=== PATIENT | female | born 1950 | race Caucasian/White ===

== ENCOUNTER 2019-04-05 16:04 | Outpatient (CLI) | payer MEDICARE, OTHER, SELFPAY ==
--- NOTE | ~2019-04-05 | US_ITS ---
EXAMINATION: US venous doppler [facility] DATE: 04/05/2019 16:44 INDICATION: Bilateral lower limb swelling TECHNIQUE: Salazar scale images without and with compression and Doppler images of the bilateral lower e xtremity veins were obtained. COMPARISON: None. FINDINGS: The right common femoral vein, profunda femoral vein, femoral vein, popliteal vein, peroneal trunk, p osterior tibial veins, and greater saphenous vein are patent. The left common femoral vein, profunda femoral vein, femoral vein, popliteal vein, peroneal trunk, po sterior tibial veins, and greater saphenous vein are patent. IMPRESSION: 1. Patent bilateral lower extremity veins. No evidence of deep venous thrombosis. Reviewed, dictated and finalized at location A. L SORTER IMPRESSION: 1. Patent bilateral lower extremity veins. No evidence of deep venous thrombosi s.
== END 2019-04-05 16:05 | disposition home or self-care (01) ==
LOC: ANHIMG 16:13
PROVIDERS: PCP Family Medicine; Visit Provider Physician Assistant
DX: M79.89 Other specified soft tissue disorders (principal)
CPT/HCPCS: 93970

== ENCOUNTER → 2019-09-20 14:58 | Outpatient (CLI) | payer MEDICARE, OTHER, SELFPAY ==
--- NOTE | ~2019-09-20 | US_ITS ---
EXAMINATION: US abdomen limited DATE: 09/20/2019 15:14 INDICATION: Unspecified abdominal pain. TECHNIQUE: Multiple grayscale and Doppler ultrasound images of the abdomen were obtained. COMPARISON: CT abdomen 06/29/2008 FINDINGS: Abdominal aorta is normal in caliber. The visualized portions of the head and body of the p ancreas are normal. There are cysts in the liver measuring up to 1.9 cm. There is normal flow in main portal vein. The gallbladder is normal in size. No gallstones or gallbladder wall thickening. There was no sonographic Merino sign. The common duct is normal and measures 4 mm. IMPRESSION: 1. No etiology for the patient's symptoms. Reviewed, dictated and finalized at location B.
== END ==
PROVIDERS: PCP Physician Assistant; Visit Provider Physician Assistant
DX: R10.9 Unspecified abdominal pain (principal)
CPT/HCPCS: 76705

== ENCOUNTER 2019-09-20 16:21 | Outpatient (CLI) | payer MEDICARE, OTHER, SELFPAY ==
--- NOTE | ~2019-09-20 | CT_ITS ---
EXAMINATION: CT abdomen pelvis w con EXAM DATE: 09/20/2019 16:54 INDICATION: Abdominal pain. TECHNIQUE: Spiral CT of the abdomen and pelvis was performed following intravenous injection of 100 m L Omnipaque 350. Axial, coronal and sagittal images were reviewed. The dose-length product (DLP) fo r this examination was 280.35 mGy-cm. The exposure was tailored according to patient size (auto mA e xposure control), and iterative reconstruction (ASIR) was used as additional dose reduction technique . Comparison is made to prior examination from 06/29/2008. FINDINGS: Scattered subcentimeter liver cysts. There is hilar splenic artery aneurysm measuring 1.3 c m. This region less well-visualized on prior study, not peripherally calcified, but probably measured about 9 mm in 2009. The spleen, pancreas, and adrenal glands are unremarkable. Gallbladder is unrem arkable. No biliary obstruction. Portal and splenic veins are patent. Kidneys enhance symmetricall y. There is no hydronephrosis. The uterus is not identified and has likely been surgically resecte d. The bladder is unremarkable. There is no retroperitoneal or pelvic lymphadenopathy. There is m ild scattered arteriosclerotic disease. The appendix is normal. Interval development of predominantly fat density region between the lesser c urvature of the stomach and the pancreatic body, probably some internally herniated fat. There is sma ll sliding gastroesophageal hiatal hernia. There is expected amount of colonic stool. No free intr aperitoneal gas. The heart is normal in size. There are no pericardial or pleural effusions. The lung bases are unremarkable. There are no osteoblastic or osteolytic lesions identified. IMPRESSION: 1. No acute intra-abdominal findings. 2. Splenic hilar 1.3 cm aneurysm. 3. Small gastroesophageal hiatal hernia. Reviewed, dictated and finalized at location A.
[2019-09-20 17:59] LABS: Estimated Glomerular Filt Rate > 60
== END 2019-09-20 16:22 | disposition home or self-care (01) ==
LOC: ANHIMG 16:25
PROVIDERS: PCP Physician Assistant; Visit Provider Physician Assistant
DX: R10.9 Unspecified abdominal pain (principal); R11.2 Nausea with vomiting, unspecified; I72.8 Aneurysm of other specified arteries; K44.9 Diaphragmatic hernia without obstruction or gangrene
CPT/HCPCS: 36415; 74177; Q9967

== ENCOUNTER 2019-09-22 10:40 | Outpatient (CLI) | payer MEDICARE, OTHER, SELFPAY ==
[2019-09-22 11:21] LABS: Add Urine Microscopic? NO; Appearance Urine Clear (Clear); Bilirubin Urine Negative (Negative); Blood Urine Negative (Negative); Color Urine Yellow (Yellow); Glucose Urine UA Negative (Negative); Ketones Urine Negative (Negative); Leukocyte Esterase Ur Negative LEU/UL (NEGATIVE); Nitrate Urine Negative (Negative); Protein Urine Negative (Negative); Specific Grav Ur 1.017 (1.001-1.035); Urobilinogen Urine Negative mg/dL (<2.0)
[2019-09-22 11:26] LABS: Alanine Aminotransferase 23 U/L (4-35); Albumin Level 4.5 g/dL (3.5-5.1); Alkaline Phosphatase 66 U/L (38-126); Amylase 125 U/L (30-110); Anion Gap 10 mmol/L (8-16); Aspartate Amino Transferase 24 U/L (14-36); Bilirubin,Total 0.3 mg/dL (0.2-1.3); Blood Urea Nitrogen 16 mg/dL (7-17); Calcium 9.1 mg/dL (8.4-10.2); Carbon Dioxide 28 mmol/L (22-30); Chloride 99 mmol/L (98-107); Estimated Glomerular Filt Rate > 60; Glucose 105 mg/dL (65-105); Lipase 104 U/L (23-300); Sodium 137 mmol/L (137-145)
[2019-09-22 11:29] LABS: Basophils Percent Auto 0.8 % (0.2-1.2); Eosinophils Absolute Auto 0.1 K/mm3 (0-0.3); Eosinophils Percent Auto 1.6 % (0-4.4); Hemoglobin 14.1 g/dL (12.0-15.0); Immature Granulocyte Absolute 0.03 K/mm3 (0.00-0.031); Immature Granulocyte Percent A 0.8 % (0-0.5); Lymphocytes Absolute Auto 1.33 K/mm3 (0.9-3.2); Lymphocytes Percent Auto 36.2 % (18.3-44.2); Mean Corpuscular HGB Conc 33.6 g/dl (32-36); Mean Corpuscular Hemoglobin 31.1 pg (26-34); Mean Corpuscular Volume 92.7 fl (80-100); Mean Platelet Volume 9.7 fl (7.4-10.4); Monocytes Absolute Auto 0.4 K/mm3 (0.1-0.6); Monocytes Percent Auto 11.4 % (2.6-8.5); Neutrophils Absolute Auto 1.8 K/mm3 (1.3-6.7); Neutrophils Percent Auto 49.2 % (45.5-73.1); Platelet Count Result 322 k/mm3 (150-375); Red Blood Count 4.53 M/mm3 (4.2-5.4); Red Cell Distribution Width 11.9 % (11.5-14.5); White Blood Count 3.7 K/mm3 (4.5-10.0)
== END 2019-09-22 10:41 | disposition home or self-care (01) ==
PROVIDERS: PCP Family Medicine; Visit Provider Physician Assistant
DX: R10.9 Unspecified abdominal pain (principal); R11.2 Nausea with vomiting, unspecified
CPT/HCPCS: 36415; 80053; 81003; 82150; 83690; 85025

== ENCOUNTER 2019-10-03 09:16 | Outpatient (CLI) | payer MEDICARE, OTHER, SELFPAY ==
--- NOTE | ~2019-10-03 | NM_ITS ---
EXAMINATION: NM hepatobiliary w pharm DATE: 10/03/2019 11:10 INDICATION: Right upper quadrant abdominal pain. COMPARISON: CT abdomen and pelvis 07/21/2019, ultrasound 09/20/2019 TECHNIQUE: 5.5 mCi Tc-99m mebrofenin (Choletec) was administered intravenously. Scintigraphic images of the abdomen were obtained for one hour. Then, 1.4 mcg sincalide (Kinevac) IV was administered, an d imaging was continued for 30 minutes. FINDINGS: There is normal clearance of radiotracer from the blood pool. There is homogeneous tracer u ptake by the liver. Activity progresses to the bowel and gallbladder. Gallbladder ejection fraction (GBEF) was 8%. Note that most patients with gallbladder dysfunction have GBEF < 35%, which overlaps w ith the broad normal range of 10-90%. IMPRESSION: 1. Low gallbladder ejection fraction, consistent with gallbladder dysfunction and/or chronic cholecy stitis. Reviewed, dictated and finalized at location B. IMPRESSION: 1. Low gallbladder ejection fraction, consistent with gallbladder dysfunction and/or chronic cholecystitis.
== END 2019-10-03 09:17 | disposition home or self-care (01) ==
LOC: ANHIMG 09:18
PROVIDERS: PCP Family Medicine; Visit Provider Physician Assistant
DX: R10.11 Right upper quadrant pain (principal); R11.2 Nausea with vomiting, unspecified
CPT/HCPCS: 78227; A9537; J2805

== ENCOUNTER 2019-10-12 13:59 | Outpatient (CLI) | payer MEDICARE, OTHER, SELFPAY ==
[2019-10-12 14:30] LABS: Anion Gap 8 mmol/L (8-16); Blood Urea Nitrogen 17 mg/dL (7-17); Calcium 8.8 mg/dL (8.4-10.2); Carbon Dioxide 30 mmol/L (22-30); Chloride 97 mmol/L (98-107); Estimated Glomerular Filt Rate > 60; Glucose 131 mg/dL (65-105); Potassium 3.5 mmol/L (3.4-5.0); Sodium 135 mmol/L (137-145)
[2019-10-12 14:31] LABS: Alanine Aminotransferase 19 U/L (4-35); Albumin Level 4.3 g/dL (3.5-5.1); Alkaline Phosphatase 67 U/L (38-126); Amylase 104 U/L (30-110); Aspartate Amino Transferase 24 U/L (14-36); Bilirubin,Total 0.3 mg/dL (0.2-1.3); Lipase 127 U/L (23-300)
== END 2019-10-12 14:00 | disposition home or self-care (01) ==
PROVIDERS: Anesthesiology; PCP Family Medicine; Visit Provider Surgery
DX: K81.1 Chronic cholecystitis (principal); Z51.81 Encounter for therapeutic drug level monitoring
CPT/HCPCS: 36415; 80048; 80076; 82150; 83690; 86850; 86880; 86900; 86901; 86902

== ENCOUNTER 2019-10-15 00:35 | Outpatient (CLI) | payer MEDICARE, OTHER, SELFPAY ==
[2019-10-15 16:32] LABS: SARS-CoV-2 RNA PCR Negative
== END 2019-10-15 00:36 | disposition home or self-care (01) ==
LOC: ANHCOVIDDT 00:36
PROVIDERS: PCP Family Medicine; Visit Provider Surgery
DX: Z01.812 Encounter for preprocedural laboratory examination (principal); Z20.828 Contact with and (suspected) exposure to other viral communicable diseases
CPT/HCPCS: 87635; C9803; U0003

== ENCOUNTER 2019-10-17 00:31 | Day surgery (SDC) | payer MEDICARE, OTHER, SELFPAY ==
[2019-10-10 11:18] VITALS: BMI 25.4
--- NOTE | 2019-10-16 14:36 | WPDANESEPPF ---
Anes - Initial Pre Proc Eval Procedure: Operation Date: 10/17/19 08:30 Proposed Procedures p Laparoscopic Cholecystectomy - Stefano Gilbert MD Date/Time: 10/16/19 14:36 Surgeon: Stefano Gilbert MD Pre Op Diagnosis: Chronic Cholecystitis Without Stones Patient Data Age: 68 Gender: F Height: 1.57 m Weight: 63.05 kg Allergies Allergy/AdvReac Type Severity Reaction Status Date / Time cefaclor Allergy Mild Hives Verified 10/17/19 07:24 Cephalosporins Allergy Mild HIVES Verified 10/17/19 07:24 clarithromycin Allergy Mild N/V/D Verified 10/17/19 07:24 codeine Allergy Mild N/V/D Verified 10/17/19 07:24 prochlorperazine Allergy Mild COULDN'T Verified 10/17/19 07:24 WALK/TALK lisinopril AdvReac Mild cough Verified 10/17/19 07:24 tramadol AdvReac N/V/D Verified 10/17/19 07:24 Latex? Allergy Mild REDNESS/IRRITATION Uncoded 10/17/19 07:24 @ SITE Local Anesthetics W/ EPI Allergy Mild SHAKINESS, Uncoded 10/17/19 07:24 PALPITATIONS NOVACAINE Allergy Mild SHAKINESS/P Uncoded 10/10/19 11:20 ALPITATIONS Home Medications Medication Instructions Recorded Confirmed Type budesonide-formoterol HFA 160 2 puff INHALATION Q12H 01/18/19 10/17/19 History mcg-4.5 mcg/actuation aerosol inhaler cholecalciferol (vitamin D3) 1,250 50,000 unit PO WEEKLY 01/18/19 10/17/19 History mcg (50,000 unit) capsule gabapentin 100 mg capsule 200 mg PO TID cap 01/18/19 10/17/19 History escitalopram oxalate 20 mg tablet 20 mg PO DAILY #90 tablet 04/11/19 10/17/19 Rx levothyroxine 75 mcg tablet 75 mcg PO DAILY #90 tablet 05/30/19 10/17/19 Rx buspirone 10 mg tablet 10 mg PO BID #180 tablet 08/01/19 10/17/19 Rx olmesartan 20 mg tablet 20 mg PO DAILY #90 tablet 08/14/19 10/17/19 Rx hydrochlorothiazide 12.5 mg tablet 12.5 mg PO DAILY #90 tablet 08/20/19 10/17/19 Rx omeprazole 40 mg capsule,delayed 40 mg PO DAILY #90 cap 09/17/19 10/17/19 Rx release bupropion HCl 150 mg PO EVERY OTHER DAY 10/10/19 10/17/19 History gabapentin 800 mg PO HS 10/10/19 10/17/19 History primidone 100 mg PO HS 10/10/19 10/17/19 History Patient hx anesthesia problems: none Family hx anesthesia problems: none [facility] Past Medical History Medical History (Updated 10/16/19 @ 14:38 by Krishan Cardenas MD) Age related osteoporosis Asthma BMI 25.0-25.9,adult Depression EREN (generalized anxiety disorder) HTN (hypertension) Hyperlipidemia Hypothyroidism, unspecified Major depression, chronic Mitral valve prolapse Splenic artery aneurysm Surgical History Surgical History History of section History of removal of cyst Social History Social History Smoking status: Never smoker Second hand tobacco smoke exposure: No Alcohol intake: never Substance use: never Substance use type: does not use Gender identity (if verbalized by the patient): Female Spiritual care concerns: No Anes - Eval Final PreProcedure Day of Procedure 10/16/19 14:36 Patient weight: overweight Heart: regular rate and rhythm Lungs: clear to auscultation and normal air movement Airway: Mallampati scale class II Neurological: alert and oriented Last oral intake: >/= 8 hours ASA classification: III Emergent: no Anesthetic plan: proceed Anesthesia type and monitoring: general ETT Informed Consent: The patient's anesthetic plan and its attendant risks and benefits were discussed with the patient/family/POA. Questions were solicited and answers provided to the satisfaction of the patient/family/POA.
[2019-10-17] VITALS (13 sets, daily range): BP systolic 127–144; BP diastolic 59–86; PULSE 64–73; RESP 16–20; TEMP 36.2–36.7; O2SAT 95–100
[2019-10-17] MEDS: LACTATED RINGERS 1,000 ML 30 ML IV CONT ×2 (06:53→09:45)
[2019-10-17] MEDS: KETOROLAC 15 MG/ML VIAL (*BKC) IV PUSH (07:33)
[2019-10-17] MEDS: ACETAMINOPHEN 500 MG TABLET 1000 MG PO (07:33)
--- NOTE | 2019-10-17 08:05 | WPDHPUPDATE1 ---
History and Physical Update Update Date/Time: 10/17/19 08:05 History and Physical has been reviewed, including an updated exam of the patient. There are NO changes in the patient's condition. Risks, benefits, and alternatives have been discussed and questions answered. Patient agrees to proceed with procedure.
[2019-10-17] MEDS: CLINDAMYCIN 900 MG/NS 50 ML 900 MG/50 ML PIGGYBACK 50 MG IVPB (08:36)
--- NOTE | 2019-10-17 09:51 | P.OP_ITS ---
Procedure Note - Detailed Date of procedure: 10/17/19 Pre-op diagnosis: Chronic Cholecystitis Without Stones Acalculous chronic cholecystitis Post-op diagnosis: same Procedure performed: Laparoscopic cholecystectomy Description of procedure: The patient was taken to surgery and induced into general anesthesia. The abdomen was prepped and draped. Trocars were placed in the usual fashion using 0.5% Marcaine with epinephrine and applied Medical optical trocars. A 5 millimeter camera was used. The gallbladder was decompressed with a laparoscopic aspirator. The cholecystotomy was closed with a Vicryl endo-loop. The gallbladder was retracted anterosuperiorly. Adhesions to the gallbladder were taken down so that the cholecystohepatic triangle was exposed. Traction was placed on the infundibu lum. The cystic duct and cystic artery were dissected out very clearly. The gallbladder was dissected off the liver at its lower 3rd. Critical view was achieved. We securely clipped and divided the cystic duct and cystic artery. The gallbladder was then further retracted so that the peritoneal attachments to the liver could be divided. Once the gallbladder was freed entirely, it was placed in an Endo-Catch bag and retrieved through the 10 11 epigastric trocar site. The epigastric trocar was then replaced. We reviewed the right upper quadrant. It was irrigated and suctioned. All looked good with no evidence of bleeding or bile leakage. We evacuated CO2 and removed the trocar sleeves. The fascia at the epigastric trocar site was closed with 0 Vicryl suture. Skin wounds were closed with subcuticular 4 O Monocryl skin suture. The wounds were dressed with Exofin surgical adhesive. Patient was awakened and taken to recovery in good condition. Sponge and needle counts were correct x2. Anesthesia: GETA and local (0.5% Marcaine with epinephrine) Surgeon: Stefano Gilbert MD Transfer Station Attendant: Migue Estimated blood loss (mL): 5 Drains: No Packing: No Pathology: yes (Gallbladder) Complications: None Condition: stable Disposition: PACU Findings: Chronic inflammation, no gallstones noted. No biliary ductal dilatation, no liver abnormalities.
[2019-10-17] MEDS: ONDANSETRON INJ 4 MG/2 ML VIAL IV PUSH (10:31)
[2019-10-17] MEDS: SCOPOLAMINE 1.5 MG PATCH TRANSDERM (11:32)
[2019-10-17] MEDS: diphenhydrAMINE HCl INJ 50 MG/ML VIAL 6.25 MG IV PUSH (12:08)
[2019-10-17] MEDS: IBUPROFEN 400 MG TABLET 800 MG PO (12:20)
== END 2019-10-17 13:43 | disposition home or self-care (01) ==
PROVIDERS: PCP Family Medicine; Visit Provider Surgery
PROC: 0FT44ZZ Resection of Gallbladder, Percutaneous Endoscopic Approach (ICD-10-PCS; CPT 47562; principal; 2019-10-17 08:30)
DX: K81.1 Chronic cholecystitis (principal); J45.909 Unspecified asthma, uncomplicated; E78.5 Hyperlipidemia, unspecified; I10 Essential (primary) hypertension; E03.9 Hypothyroidism, unspecified; I34.1 Nonrheumatic mitral (valve) prolapse; F41.1 Generalized anxiety disorder; F32.89 Other specified depressive episodes
CPT/HCPCS: 47562; 88304; A9270; C1713; J1100; J1200; J1885; J2250; J2405; J2704; J3010; J7030; J7120

== ENCOUNTER 2020-01-21 15:46 | Outpatient (CLI) | payer MEDICARE, OTHER, SELFPAY ==
--- NOTE | ~2020-01-21 | MR_ITS ---
EXAMINATION: MR cervical spine wo con EXAM DATE: 01/21/2020 17:05 INDICATION: Cervical disc displacement, chronic bilateral arm numbness. TECHNIQUE: Multi-sequential, multiplanar MR images of the cervical spine were obtained without contra st. Axial T2, axial T2 MERGE sequence. Sagittal T1, T2, T2 fat saturation images also obtained. Th ere is no prior study for comparison. FINDINGS: There is mild to moderate loss of the C3-4 and C5-6 disc heights, moderate at C6-7. There is 2 mm anterolisthesis C4 on C5 and C5 on C6. The spinal cord signal intensity and intrinsic morphol ogy is normal. Cervicomedullary junction is normal in appearance. There are no suspicious marrow sign al abnormalities. Paraspinal soft tissue is unremarkable. Level by level evaluation: Significantly limited from patient motion. Difficult to confidently evalua te degree of neural foraminal stenosis, however there is likely moderate to severe left neural forami nal stenosis at C3-4, probably the most narrowed neural foramina. There may be moderate left neural f oraminal stenosis at C6-7. Considering limitations on the study, a CT scan might be more diagnostic f or this patient. IMPRESSION: Significant limitations from motion. Left-sided predominant neural foraminal stenosis. Reviewed, dictated and finalized at location A. 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
--- NOTE | ~2020-01-21 | MR_ITS ---
EXAMINATION: MR lumbar spine wo [facility] EXAM DATE: 01/21/2020 17:24 INDICATION: lumbar disc displacement, chronic moshe arm numbness lbp. TECHNIQUE: Multi-sequential, multiplanar MR images of the lumbar spine were obtained without contrast . Sagittal T1, T2, T2 fat saturation images. Axial T2 weighted images. There is no prior study for comparison. FINDINGS: Mild lumbar disc disease at all levels. Small Tarlov cysts. The vertebral bodies are aligne d in the AP dimension. There are no suspicious marrow signal abnormalities. The conus medullaris term inates at the L1/2 level and has normal signal intensity and morphology. Paraspinal soft tissue is u nremarkable. Level by level evaluation: T12-L1: Disc does not extend beyond the endplate margin. Facet arthropathy: None. Neural foraminal stenosis: No stenosis. Central canal stenosis: No stenosis. L1-L2: Small left central disc protrusion Facet arthropathy: Minimal. Neural foraminal stenosis: No stenosis. Central canal stenosis: No stenosis. L2-L3: There is a mild diffuse disc bulge. Facet arthropathy: Mild. Neural foraminal stenosis: No stenosis. Central canal stenosis: No stenosis. L3-L4: There is a mild diffuse disc bulge. Facet arthropathy: Mild. Neural foraminal stenosis: No stenosis. Central canal stenosis: No stenosis. L4-L5: [id number] Facet arthropathy: Mild to moderate. Neural foraminal stenosis: Mild bilateral. Central canal stenosis: Mild. L5-S1: There is a mild diffuse disc bulge. Facet arthropathy: Mild. Neural foraminal stenosis: Mild right. Central canal stenosis: No stenosis. IMPRESSION: 1. Mild lumbar spondylosis. Reviewed, dictated and finalized at location A. [employer] IMPRESSION: 1. Mild lumbar spondylosis.
== END 2020-01-21 15:47 | disposition home or self-care (01) ==
PROVIDERS: PCP Family Medicine; Visit Provider Psychiatry & Neurology Neurology
DX: M50.20 Other cervical disc displacement, unspecified cervical region (principal); M51.26 Other intervertebral disc displacement, lumbar region; M47.896 Other spondylosis, lumbar region
CPT/HCPCS: 72141; 72148

== ENCOUNTER 2020-12-23 08:32 | Outpatient (CLI) | payer MEDICARE, OTHER, SELFPAY ==
--- NOTE | 2020-12-23 11:00 | NEURO_ITS ---
Impression: # Complains of numbness of lower extremities. # Normal motor and sensory nerve conduction study. # Normal needle/EMG exam. # Clinical correlation recommended. Nerve Conduction Studies Anti Sensory Summary Table Stim Site NR Peak (ms) P-T Amp (?V) Site1 Site2 Delta-P (ms) Dist (cm) Devonte (m/s) Left Sup Fibular Anti Sensory (Ant Lat Mall) 14 cm 3.9 8.1 14 cm Ant Lat Mall 3.9 16.0 41 Right Sup Fibular Anti Sensory (Ant Lat Mall) 14 cm 3.3 6.4 14 cm Ant Lat Mall 3.3 16.0 48 Left Sural Anti Sensory (Lat Mall) Calf 3.4 7.6 Calf Lat Mall 3.4 16.0 47 Right Sural Anti Sensory (Lat Mall) Calf 3.4 21.7 Calf Lat Mall 3.4 16.0 47 Motor Summary Table Stim Site NR Onset (ms) O-P Amp (mV) Site1 Site2 Delta-0 (ms) Dist (cm) Devonte (m/s) Left Peroneal Motor (Vastus Med) Ankle 4.4 1.8 Popit Ankle 8.2 38.0 46 Popit 12.6 2.0 Right Peroneal Motor (Vastus Med) Ankle 4.1 2.3 Popit Ankle 7.9 37.0 47 Popit 12.0 2.3 Left Tibial Motor (Abd Ray Brev) Ankle 4.4 4.5 Knee Ankle 8.9 40.0 45 Knee 13.3 1.7 Right Tibial Motor (Abd Ray Brev) Ankle 4.3 1.9 Knee Ankle 9.8 39.0 40 Knee 14.1 1.1 F Wave Studies NR F-Lat (ms) L-R F-Lat (ms) Left Peroneal (Mrkrs) (EDB) 53.13 0.32 Right Peroneal (Mrkrs) (EDB) 52.81 0.32 Left Tibial (Mrkrs) (Abd Hallucis) 54.13 0.63 Right Tibial (Mrkrs) (Abd Hallucis) 53.50 0.63 EMG Side Muscle Nerve Root Ins Act Fibs Amp Dur Recrt Comment Right AntTibialis Dp Br Fibular L4-5 Nml Nml Nml Nml Nml Right Gastroc Tibial S1-2 Nml Nml Nml Nml Nml Right Fibularis Long Sup Br Fibular L5-S1 Nml Nml Nml Nml Nml Right Flex Dig Long Tibial L5-S2 Nml Nml Nml Nml Nml Right Ext Dig Brev Dp Br Fibular L5, S1 Nml Nml Nml Nml Nml Left AntTibialis Dp Br Fibular L4-5 Nml Nml Nml Nml Nml Left Gastroc Tibial S1-2 Nml Nml Nml Nml Nml Left Fibularis Long Sup Br Fibular L5-S1 Nml Nml Nml Nml Nml Left Flex Dig Long Tibial L5-S2 Nml Nml Nml Nml Nml Left Ext Dig Brev Dp Br Fibular L5, S1 Nml Nml Nml Nml Nml MTDD
== END 2020-12-23 08:33 | disposition home or self-care (01) ==
LOC: ANHNEURO 08:40
PROVIDERS: PCP Family Medicine; Visit Provider Psychiatry & Neurology Neurology
DX: R25.2 Cramp and spasm (principal)
CPT/HCPCS: 95886; 95910

== ENCOUNTER 2021-05-08 16:51 | Outpatient (CLI) | payer MEDICARE, OTHER, SELFPAY ==
--- NOTE | ~2021-05-08 | MR_ITS ---
EXAMINATION: MR brain/brain stem wo con DATE: 05/08/2021 17:42 INDICATION: Ataxia, unspecified. TECHNIQUE: Magnetic resonance imaging (MRI) of the brain and brainstem was performed without intraven ous contrast. Sequences included sagittal and axial T1-weighted FSE, axial diffusion-weighted FS EPI, axial T2*-weighted GRE, axial T2-weighted FLAIR Propeller, and axial T2-weighted Propeller. Apparent diffusion coefficient (ADC) maps were created. COMPARISON: Brain MRI 12/10/2015 FINDINGS: There are scattered areas of nonspecific increased T2-weighted signal intensity in the cere bral white matter and angelica, which is within normal limits for the patient's age. There is no intracr anial hemorrhage, acute infarction, or abnormal intracranial mass lesion. The ventricles are normal i n size. The paranasal sinuses are clear. The orbits are normal. The mastoid air cells are normal. IMPRESSION: 1. Normal aging brain. Reviewed, dictated and finalized at location A. IMPRESSION: 1. Normal aging brain.
== END 2021-05-08 16:52 | disposition home or self-care (01) ==
PROVIDERS: PCP Family Medicine; Visit Provider Psychiatry & Neurology Neurology
DX: R27.0 Ataxia, unspecified (principal); S09.90XA Unspecified injury of head, initial encounter
CPT/HCPCS: 70551

== ENCOUNTER 2021-06-20 08:49 | Outpatient (CLI) | payer MEDICARE, OTHER, SELFPAY ==
--- NOTE | ~2021-06-20 | MR_ITS ---
EXAMINATION: MR cervical spine wo con DATE: 06/20/2021 09:36 INDICATION: Other specified dorsopathies, cervical region. Bilateral arm and hand and finger numbness and tingling. TECHNIQUE: Magnetic resonance imaging (MRI) of the cervical spine was performed without intravenous c ontrast. Sequences included sagittal T2-weighted FSE, sagittal T2-weighted FS FSE, sagittal T1-weight ed FSE, axial MERGE, and axial T2-weighted FSE. COMPARISON: Cervical spine MRI 01/21/2020 FINDINGS: There is 17 degrees dextroscoliosis of cervicothoracic spine. There is kyphosis of lower ce rvical spine. There are chronic compression fractures of T1 and T3 with 1/5 loss of height. There is moderately decreased disc height at C3-C4 and C5-C6. There is severely decreased disc height at C6-C7 with endplate remodeling. The spinal cord signal intensity is normal, but motion artifact decreases sensitivity. The following disc levels are specifically discussed: C2-C3: The disc does not extend beyond the endplate margin. There is no uncovertebral joint osteoarth ritis. There is mild bilateral facet joint osteoarthritis. There is no neural foraminal stenosis. The re is no central canal stenosis. C3-C4: The disc is bulging. There is mild right and moderate left uncovertebral joint osteoarthritis. There is mild bilateral facet joint osteoarthritis. There is mild bilateral neural foraminal stenosi s. There is mild central canal stenosis. C4-C5: The disc does not extend beyond the endplate margin. There is mild left uncovertebral joint os teoarthritis. There is no facet joint osteoarthritis. There is mild left neural foraminal stenosis. T here is no central canal stenosis. C5-C6: There is a central extrusion. There is mild left uncovertebral joint osteoarthritis. There is mild left facet joint osteoarthritis. There is mild left neural foraminal stenosis. There is mild annel tral canal stenosis with ventral indentation of spinal cord. C6-C7: The disc is bulging. There is severe bilateral uncovertebral joint osteoarthritis. There is no facet joint osteoarthritis. There is mild bilateral neural foraminal stenosis. There is mild central canal stenosis. C7-T1: The disc does not extend beyond the endplate margin. There is no uncovertebral joint osteoarth ritis. There is mild bilateral facet joint osteoarthritis. There is no neural foraminal stenosis. The re is no central canal stenosis. IMPRESSION: 1. Severe cervical spondylosis, worst at C6-C7, worsened from 01/21/2020. Reviewed, dictated and finalized at location B.
== END 2021-06-20 08:50 | disposition home or self-care (01) ==
PROVIDERS: PCP Family Medicine; Visit Provider Psychiatry & Neurology Neurology
DX: M47.813 Spondylosis without myelopathy or radiculopathy, cervicothoracic region (principal); M48.03 Spinal stenosis, cervicothoracic region
CPT/HCPCS: 72141

== ENCOUNTER 2021-09-15 08:30 | Outpatient (RCR) | payer MEDICARE, OTHER, SELFPAY ==
--- NOTE | 2021-08-28 09:13 | PTOPEVAL ---
PHYSICAL THERAPY INITIAL EVALUATION. Thank you for referring Asuncion Houser to [facility].? The patient is scheduled to be seen for therapy? 1x/week for 4 weeks. Please review, sign, date and return this plan of care ALEXANDREA. I agree with and certify that the following plan of care is medically necessary. Referring Physician Date Attending Provider: ANTONETTE Vicente *PT Outpatient Evaluation Start: 08/28/21 Evaluation Information Diagnosis L elbow pain Onset 1 month Subjective Information Pt states her L elbow has been Query Text:As Reported By Patient/ hurting for about a month. Family She has tried a round of medication from her doctor and a forearm brace, both of these help minimally. Pt states she is right handed. Pt states she takes 4 Advil at a time and it does not help the pain. Pain Assessment Left Elbow(s) Reported Pain Level 3 Pain Description Sharp,Tender on Palpation Pain Frequency Acute,Intermittent Greatest Pain Intensity 8 Pain Aggravating Factors Exercise/Activity,Lifting Other Pain Aggravating Factors typing Elbow/Forearm Range of Motion Left Elbow Flexion - Active 150 Elbow Extension - Active 0 Elbow/Forearm Range of Motion Comments R elbow active flexion 0-150 - pain reported with L elbow motion Wrist Range of Motion Right Wrist Flexion - Active 70 Wrist Flexion - Passive 70 Wrist Extension - Active 50 Wrist Extension - Passive 70 Wrist Radial Deviation - Active 25 Wrist Ulnar Deviation - Active 50 Wrist Range of Motion Limitations None Wrist Range of Motion Comments Wrist flexion with elbow bent active/passive: 70, 75 Left Wrist Flexion - Active 75 Wrist Flexion - Passive 75 Wrist Extension - Active 60 Wrist Extension - Passive 80 Wrist Radial Deviation - Active 30 Wrist Ulnar Deviation - Active 50 Wrist Range of Motion Comments Wrist flexion with elbow bent active/passive: 72, 75 - pain reported with active wrist extension Upper Extremity Muscle Strength Testing Gross Upper Extremity Strength Comments - painful and weak with resisted wrist flexion Palpation Assessment Palpation olecranon process and lateral epicondyle Special Tests-Upper Extremity Cozen's Negative Right,Positive Left Safety Assessment Factors Affecting Safety No Concerns PT Clinic
--- NOTE | 2021-10-13 14:33 | PCPTNOTE ---
Called and left voicemail for patient regarding her having no current therapy appointment scheduled nor a follow up. Instructed her to call the clinic to schedule if needed. If we do not hear back from her in the next week, she will be d/c'ed.
--- NOTE | 2021-10-20 10:29 | PTOPDC ---
Assessment and note entered by Jonh Victoria, PT, DPT Evaluation Information Assessment Status Discharge - Pt Not Present Assessment PT Clinical Summary Called and left voicemail for patient on 10/13/21 regarding her having no current therapy appointment scheduled nor a follow up. Instructed her to call the clinic to schedule if needed. She has not returned the call. Asuncion completed 3 visits of therapy from 08/28/21 to 09/15/21. She will be discharged from skilled therapy services at this time. If she would like to return she will need a new order.
== END 2021-11-05 08:25 | disposition home or self-care (01) ==
LOC: ANHHIPT 08:30
PROVIDERS: PCP Family Medicine; Visit Provider Nurse Practitioner Family
DX: M77.12 Lateral epicondylitis, left elbow (principal)
CPT/HCPCS: 97035; 97110; 97140; 97161

== ENCOUNTER 2021-10-05 00:32 | Day surgery (SDC) | payer MEDICARE, OTHER, SELFPAY ==
[2021-09-23 15:03] VITALS: BMI 26.6
[2021-10-05 12:06] VITALS: BP 146/84; PULSE 70; RESP 20; TEMP 36.4; O2SAT 100; BMI 26.2
[2021-10-05] MEDS: LACTATED RINGERS 1,000 ML 150 ML IV CONT (12:21)
--- NOTE | 2021-10-05 12:23 | WPDANESEPPF ---
Anes - Initial Pre Proc Eval Procedure: Operation Date: 10/05/21 13:00 Proposed Procedures p Esophagogastroduodenoscopy & Colonoscopy - Tan Sood MD Date/Time: 10/05/21 12:23 Surgeon: Tan Sood MD Pre Op Diagnosis: chronic diarrhea, abd.flatulence, GERD, abdom.pain Patient Data Age: 70 Gender: F Height: 1.57 m Weight: 65.2 kg Last Vital Signs Temp 36.4 C 10/05/21 12:06 Pulse 70 10/05/21 12:06 Resp 20 10/05/21 12:06 BP 146/84 H 10/05/21 12:06 Pulse Ox 100 10/05/21 12:06 O2 Del Method Room Air 10/05/21 12:06 Allergies Allergy/AdvReac Type Severity Reaction Status Date / Time codeine Allergy Severe N/V/D Verified 10/05/21 12:05 dicyclomine Allergy Severe Weakness Verified 10/05/21 12:05 prochlorperazine Allergy Severe COULDN'T Verified 10/05/21 12:05 WALK/TALK cefaclor Allergy Intermediate Hives Verified 10/05/21 12:05 Cephalosporins Allergy Intermediate HIVES Verified 10/05/21 12:05 clarithromycin Allergy Mild N/V/D Verified 10/05/21 12:05 latex Allergy Rash Verified 10/05/21 12:05 clindamycin AdvReac Severe Gastrointestinal Verified 10/05/21 12:05 Upset tramadol AdvReac Severe N/V/D Verified 10/05/21 12:05 lisinopril AdvReac Mild cough Verified 10/05/21 12:05 Local Anesthetics W/ EPI Allergy Severe SHAKINESS, Uncoded 10/05/21 12:05 PALPITATIONS NOVACAINE Allergy Severe SHAKINESS/P Uncoded 10/05/21 12:05 ALPITATIONS Home Medications Medication Instructions Recorded Confirmed Type budesonide-formoterol HFA 160 2 puff inhalation Q12H 01/18/19 09/23/21 History mcg-4.5 mcg/actuation aerosol inhaler (Symbicort) cholecalciferol (vitamin D3) 1,250 50,000 unit PO WEEKLY 01/18/19 10/05/21 History mcg (50,000 unit) capsule gabapentin 400 mg capsule 800 mg PO HS 10/10/19 10/05/21 History colestipol 1 gram tablet 1 g PO DAILY #30 tabs 02/19/21 10/05/21 Rx albuterol sulfate 90 mcg/actuation See Rx Instructions .Route 06/08/21 09/23/21 Rx aerosol inhaler .COMPLEX #8.5 ea escitalopram oxalate 20 mg tablet 20 mg PO DAILY #90 tabs 08/12/21 10/05/21 Rx (Lexapro) omeprazole 40 mg capsule,delayed 40 mg PO DAILY #90 caps 08/20/21 10/05/21 Rx release buspirone 10 mg tablet 10 mg PO DAILY #90 tabs 09/14/21 10/05/21 Rx Move Well 2 cap PO DAILY 09/23/21 10/05/21 History Prevagen 1 cap PO DAILY 09/23/21 10/05/21 History calcium carbonate 500 mg calcium 1,000 mg PO DAILY 09/23/21 10/05/21 History (1,250 mg) tablet garlic 1 tab-cap PO DAILY 09/23/21 10/05/21 History magnesium 100 mg capsule 400 mg PO DAILY 09/23/21 10/05/21 History qanjnvqddryx-Jz-alhz-minerals 1 tablet PO DAILY 09/23/21 10/05/21 History vit C 250 mg-vit E 90 mg-zinc 40 1 tablet PO DAILY 09/23/21 10/05/21 History mg-copper 1 gq-wjddao-gxutdz capsule (PreserVision AREDS-2) gabapentin 100 mg capsule See Rx Instructions .Route 09/30/21 10/05/21 Rx .COMPLEX #540 caps primidone 50 mg tablet See Rx Instructions .Route 09/30/21 10/05/21 Rx .COMPLEX #180 tabs hydrochlorothiazide 12.5 mg tablet See Rx Instructions .Route 10/01/21 10/05/21 Rx .COMPLEX #90 tabs levothyroxine 75 mcg tablet 75 mcg PO DAILY #90 tabs 10/01/21 10/05/21 Rx olmesartan 20 mg tablet See Rx Instructions .Route 10/01/21 10/05/21 Rx .COMPLEX #90 tabs dicyclomine 10 mg capsule 10 mg PO BID #60 caps 10/02/21 10/05/21 Rx tizanidine 2 mg tablet 2 mg PO TID PRN muscle spasticity 10/05/21 10/05/21 Rx #60 tabs Patient hx anesthesia problems: none Family hx anesthesia problems: none Results Review: All pre-operative results and documents have been reviewed as part of the pre-operative evaluation. [facility] Past Medical History Medical History Age related osteoporosis Asthma BMI 25.0-25.9,adult Depression EREN (generalized anxiety disorder) HTN (hypertension) Hyperlipidemia Hypothyroidism, unspecified Major depression, chronic Mitral valve prolap
--- NOTE | 2021-10-05 12:32 | PM.IMHP ---
H&P: HPI History of Present Illness Date/Time: 10/05/21 12:32 Chief Complaint: Diarrhea, epigastric pain, neoplasia screening. Narrative: This is a 70-year-old white female patient referred for colonoscopy an EGD. Patient complains of epigastric pain for quite some time. This is not related to diet nor bowel movements. Not related to activity. She reports she is somewhat tender in the upper abdomen constantly. She has taken omeprazole with no clear response or improvement. She denies any weight loss or bleeding. She does notice that she has gassy causing both belching distension and flatus. Patient reports chronic diarrhea that began over the last 2 years after recent cholecystectomy. She has had no response to colestipol trial. Family history is noncontributory. Last colonoscopy was 2008. Patient referred today for EGD to assess epigastric pain colonoscopy because of chronic diarrhea and for neoplasia screening purposes. Review of Systems Review of Systems: Review of systems noncontributory. [facility] Past Medical History Medical History Age related osteoporosis Asthma BMI 25.0-25.9,adult Depression EREN (generalized anxiety disorder) HTN (hypertension) Hyperlipidemia Hypothyroidism, unspecified Major depression, chronic Mitral valve prolapse Splenic artery aneurysm Surgical History Surgical History History of section History of removal of cyst Hx laparoscopic cholecystectomy 10/17/2019 Family History Family History Mother Family history of Alzheimer's disease Hypertension Father Acute myocardial infarction Other Asthma Social History Social History Smoking status: Never smoker Second hand tobacco smoke exposure: No Alcohol intake: never Substance use: never Substance use type: does not use Living arrangements: with family Gender identity (if verbalized by the patient): Female Spiritual care concerns: No Meds Home Medications and Allergies Home Medications Medication Instructions Recorded Confirmed Type budesonide-formoterol HFA 160 2 puff inhalation Q12H 01/18/19 09/23/21 History mcg-4.5 mcg/actuation aerosol inhaler (Symbicort) cholecalciferol (vitamin D3) 1,250 50,000 unit PO WEEKLY 01/18/19 10/05/21 History mcg (50,000 unit) capsule gabapentin 400 mg capsule 800 mg PO HS 10/10/19 10/05/21 History colestipol 1 gram tablet 1 g PO DAILY #30 tabs 02/19/21 10/05/21 Rx albuterol sulfate 90 mcg/actuation See Rx Instructions .Route 06/08/21 09/23/21 Rx aerosol inhaler .COMPLEX #8.5 ea escitalopram oxalate 20 mg tablet 20 mg PO DAILY #90 tabs 08/12/21 10/05/21 Rx (Lexapro) omeprazole 40 mg capsule,delayed 40 mg PO DAILY #90 caps 08/20/21 10/05/21 Rx release buspirone 10 mg tablet 10 mg PO DAILY #90 tabs 09/14/21 10/05/21 Rx Move Well 2 cap PO DAILY 09/23/21 10/05/21 History Prevagen 1 cap PO DAILY 09/23/21 10/05/21 History calcium carbonate 500 mg calcium 1,000 mg PO DAILY 09/23/21 10/05/21 History (1,250 mg) tablet garlic 1 tab-cap PO DAILY 09/23/21 10/05/21 History magnesium 100 mg capsule 400 mg PO DAILY 09/23/21 10/05/21 History xxlkyuxkgrlk-Ko-rpde-minerals 1 tablet PO DAILY 09/23/21 10/05/21 History vit C 250 mg-vit E 90 mg-zinc 40 1 tablet PO DAILY 09/23/21 10/05/21 History mg-copper 1 du-svfcsy-yakpjh capsule (PreserVision AREDS-2) gabapentin 100 mg capsule See Rx Instructions .Route 09/30/21 10/05/21 Rx .COMPLEX #540 caps primidone 50 mg tablet See Rx Instructions .Route 09/30/21 10/05/21 Rx .COMPLEX #180 tabs hydrochlorothiazide 12.5 mg tablet See Rx Instructions .Route 10/01/21 10/05/21 Rx .COMPLEX #90 tabs levothyroxine 75 mcg tablet 75 mcg PO DAILY #90 tabs 10/01/21 10/05/21 Rx
--- NOTE | 2021-10-05 13:24 | SUR.OPER ---
EGD start 1323 end 1325, Colon start 1331 end 1341
[2021-10-05] MEDS: SIMETHICONE ORAL SUSPENSION 20 MG/0.3 ML 30 ML BOTTLE 0.6 ML IRRIGATION (13:36)
[2021-10-05 13:45] VITALS: BP 110/62; PULSE 69; RESP 13; O2SAT 100
[2021-10-05 13:55] VITALS: BP 97/79; PULSE 74; RESP 22; O2SAT 100
[2021-10-05 14:05] VITALS: BP 123/72; PULSE 64; RESP 19; O2SAT 100
== END 2021-10-05 14:15 | disposition home or self-care (01) ==
PROVIDERS: PCP Family Medicine; Visit Provider Internal Medicine Gastroenterology
PROC: 0DJ08ZZ Inspection of Upper Intestinal Tract, Via Natural or Artificial Opening Endoscopic (ICD-10-PCS; CPT 43235; principal; 2021-10-05 13:00)
DX: Z12.11 Encounter for screening for malignant neoplasm of colon (principal); R19.7 Diarrhea, unspecified; K64.8 Other hemorrhoids; R14.0 Abdominal distension (gaseous); R10.13 Epigastric pain; M81.0 Age-related osteoporosis without current pathological fracture; J45.909 Unspecified asthma, uncomplicated; I10 Essential (primary) hypertension; E03.9 Hypothyroidism, unspecified; I72.8 Aneurysm of other specified arteries; F41.1 Generalized anxiety disorder; I34.1 Nonrheumatic mitral (valve) prolapse; Z90.49 Acquired absence of other specified parts of digestive tract
CPT/HCPCS: 45380; 43239; 87081; 88305; J2704; J7120

== ENCOUNTER 2021-12-22 09:43 | Outpatient (CLI) | payer MEDICARE, OTHER, SELFPAY ==
--- NOTE | 2021-12-22 11:30 | NEURO_ITS ---
Impression: # Complains of cramps in all extremities. # Normal nerve conduction study. # Needle/EMG exam reveals neurogenic changes in left lower extremity muscles. No active fibs. # Clinical correlation recommended and further diagnostic testing such as MRI spine suggested. Motor Nerve Conduction Upper Extremities Median Nerve Conduction Velocity (m/sec) Terminal Latency (msec) Response Voltage(mV) Elbow-Wrist Wrist Elbow Wrist Right 52 3.2 2 2 Left 54 3.8 1 3 Ulnar Nerve Conduction Velocity (m/sec) Terminal Latency (msec) Response Voltage(mV) Above Elbow Below Elbow Wrist Above Elbow Below Elbow Wrist Right 57 2.2 5 7 Left 57 2.7 4 5 F-Wave Latency Median (ms) Ulnar (ms) Right 27.8 27.2 Left 28.3 27.9 Sensory Nerve Conduction Upper Extremities Median Nerve Stimulation Terminal Latency (msec) Wrist/Digit Response Voltage (uV) Wrist Right 3.2/3.2 27/36 Left 3.2/3.3 19/36 Ulnar Nerve Stimulation Terminal Latency (msec) Wrist/Digit Response Voltage (uV) Wrist Right 2.3 55 Left 2.6 45 Radial Nerve Terminal Latency (msec) Response Voltage(mV) Right 2.2 20 Left 2.6 22 Left Right Muscles Examined Fibrillation Fasciculation Scarcity Voltage Duration Left Right Left Right Left Right Left Right Left Right Deltoid Biceps X X Brachioradialis Triceps X X Pronator Teres X X Ext Indicis X X Ext Digitorum X X Abd Poll Brev X X 1st Dorsal Interosseus Paraspinals Motor Nerve Conduction Lower Extremities Peroneal Nerve Conduction Velocity (m/sec) Terminal Latency (msec) Response Voltage(mV) Popliteal space-Ankle Ankle Extensor Dig Brevis Popliteal space Ankle Right 45 4.5 3 3 Left 48 4.1 2 2 Tibial Nerve Conduction Velocity (m/sec) Terminal Latency (msec) Response Voltage(mV) Popliteal space-Ankle Ankle-Extensor Dig Brevis Popliteal space Ankle Right 42 4.2 3 2 Left 45 4.2 3 4 F-waves Peroneal Nerve (ms) Tibial Nerve (ms) Right 50.0 51.3 Left 51.3 51.5 Sensory Nerve Conduction Lower Extremities Sural Nerve Stimulation Terminal Latency (msec) Ankle Response Voltage (uV) Ankle Response Velocity (m/sec) Right 3.6 14 44 Left 3.3 15 48 Superficial Peroneal Nerve Stimulation Terminal Latency (msec) Ankle Response Voltage (uV) Ankle Response Velocity (m/sec) Right 3.3 17 48 Left 3.7 11 43 Left Right Muscles Examined Fibrillation Fasciculation Scarcity Voltage Duration Left Right Left Right Left Right Left Right Left Right X X Ant Tibialis + + X X Gastroc X X Fibularis Long ++ + X X Flex Dig Long X X Ext Dig Brev Abd Hallucis X X Quadriceps Paraspinals MTDD
== END 2021-12-22 09:44 | disposition home or self-care (01) ==
LOC: ANHNEURO 09:48
PROVIDERS: PCP Family Medicine; Visit Provider Student in an Organized Health Care Education/Training Program
DX: R25.2 Cramp and spasm (principal)
CPT/HCPCS: 95886; 95913

== ENCOUNTER 2022-02-03 15:36 | Outpatient (CLI) | payer MEDICARE, OTHER, SELFPAY ==
[2022-02-03 16:02] LABS: Basophils Percent Auto 0.2 % (0.2-1.2); Eosinophils Percent Auto 0.6 % (0-4.4); Hematocrit 43.5 % (37.0-47.0); Hemoglobin 14.5 g/dL (12.0-15.0); Immature Granulocyte Absolute 0.02 K/mm3 (0.00-0.031); Immature Granulocyte Percent A 0.4 % (0-0.5); Lymphocytes Absolute Auto 1.26 K/mm3 (0.9-3.2); Lymphocytes Percent Auto 23.2 % (18.3-44.2); Mean Corpuscular HGB Conc 33.3 g/dl (32-36); Mean Corpuscular Hemoglobin 31.5 pg (26-34); Mean Corpuscular Volume 94.4 fl (80-100); Mean Platelet Volume 9.1 fl (7.4-10.4); Monocytes Absolute Auto 0.6 K/mm3 (0.1-0.6); Monocytes Percent Auto 10.3 % (2.6-8.5); Neutrophils Absolute Auto 3.6 K/mm3 (1.3-6.7); Neutrophils Percent Auto 65.3 % (45.5-73.1); Platelet Count Result 267 k/mm3 (150-375); Red Blood Count 4.61 M/mm3 (4.2-5.4); Red Cell Distribution Width 13.1 % (11.5-14.5); White Blood Count 5.4 K/mm3 (4.5-10.0)
[2022-02-03 16:17] LABS: Alanine Aminotransferase 75 U/L (6-35); Albumin Level 4.6 g/dL (3.5-5.1); Alkaline Phosphatase 65 U/L (38-126); Amylase 111 U/L (30-110); Anion Gap 8 mmol/L (8-16); Aspartate Amino Transferase 56 U/L (14-36); Bilirubin,Total 0.6 mg/dL (0.2-1.3); Blood Urea Nitrogen 9 mg/dL (7-17); Calcium 8.1 mg/dL (8.4-10.2); Carbon Dioxide 26 mmol/L (22-30); Chloride 104 mmol/L (98-107); Estimated Glomerular Filt Rate > 60; Glucose 97 mg/dL (65-110); Lipase 136 U/L (23-300); Potassium 3.4 mmol/L (3.4-5.0); Sodium 138 mmol/L (137-145)
== END 2022-02-03 15:37 | disposition home or self-care (01) ==
PROVIDERS: PCP Family Medicine; Visit Provider Physician Assistant
DX: E86.0 Dehydration (principal); R19.7 Diarrhea, unspecified; R10.9 Unspecified abdominal pain
CPT/HCPCS: 36415; 80053; 82150; 83690; 85025; 87045; 87427

== ENCOUNTER 2022-12-29 11:53 | Outpatient (CLI) | payer MEDICARE, OTHER, SELFPAY ==
--- NOTE | ~2022-12-29 | XR_ITS ---
EXAMINATION: XR chest 2V 12/29/2022 12:17 INDICATION: Cough PROCEDURE: 2 view chest COMPARISON: 09/18/2015 FINDINGS: The lungs are clear. The cardiomediastinal silhouette is within normal limits. There are no pleural effusions. There is no pneumothorax suspected. There are cholecystectomy clips. IMPRESSION: 1: NO ACUTE CARDIOPULMONARY DISEASE. Reviewed, dictated and finalized at location [facility]
== END 2022-12-29 11:54 | disposition home or self-care (01) ==
PROVIDERS: PCP Family Medicine; Visit Provider Physician Assistant
DX: R05.9 Cough, unspecified (principal)
CPT/HCPCS: 71046

== ENCOUNTER 2023-04-28 11:32 | Outpatient (CLI) | payer MEDICARE, OTHER, SELFPAY ==
[2023-04-28 11:58] LABS: Basophils Percent Auto 0.8 % (0.2-1.2); Eosinophils Absolute Auto 0.1 K/mm3 (0-0.3); Eosinophils Percent Auto 2.9 % (0-4.4); Hematocrit 40.5 % (37.0-47.0); Hemoglobin 13.7 g/dL (12.0-15.0); Immature Granulocyte Absolute 0.01 K/mm3 (0.00-0.031); Immature Granulocyte Percent A 0.3 % (0-0.5); Lymphocytes Absolute Auto 1.53 K/mm3 (0.9-3.2); Lymphocytes Percent Auto 40.3 % (18.3-44.2); Mean Corpuscular HGB Conc 33.8 g/dl (32-36); Mean Corpuscular Hemoglobin 31.8 pg (26-34); Mean Platelet Volume 8.8 fl (7.4-10.4); Monocytes Absolute Auto 0.5 K/mm3 (0.1-0.6); Monocytes Percent Auto 12.9 % (2.6-8.5); Neutrophils Absolute Auto 1.6 K/mm3 (1.3-6.7); Neutrophils Percent Auto 42.8 % (45.5-73.1); Platelet Count Result 248 k/mm3 (150-375); Red Blood Count 4.31 M/mm3 (4.2-5.4); Red Cell Distribution Width 12.2 % (11.5-14.5); White Blood Count 3.8 K/mm3 (4.5-10.0)
[2023-04-28 17:16] LABS: Hepatitis B Surface Antigen Negative (Negative)
[2023-04-28 17:21] LABS: HAV RESULT Negative (Negative); Hepatitis B Core IgM Result Negative (Negative)
[2023-04-28 17:22] LABS: Iron 97 ug/dL (37-170)
[2023-04-28 17:33] LABS: Hepatitis C Virus Antibody Negative (Negative)
[2023-04-28 17:34] LABS: Percent Iron Saturation 26 % (20-50)
[2023-04-28 17:51] LABS: Alanine Aminotransferase 42 U/L (6-35); Albumin Level 4.5 g/dL (3.5-5.1); Alkaline Phosphatase 66 U/L (38-126); Anion Gap 8 mmol/L (8-16); Aspartate Amino Transferase 38 U/L (14-36); Bilirubin,Total 0.5 mg/dL (0.2-1.3); Blood Urea Nitrogen 12 mg/dL (7-17); Calcium 9.4 mg/dL (8.4-10.2); Carbon Dioxide 30 mmol/L (22-30); Chloride 99 mmol/L (98-107); Estimated Glomerular Filt Rate > 60; Glucose 96 mg/dL (65-110); Potassium 3.8 mmol/L (3.4-5.0); Sodium 137 mmol/L (137-145)
[2023-04-29 00:29] LABS: Folic Acid > 20.0 ng/mL (2.76->20)
[2023-05-02 04:45] LABS: Methylmalonic Acid 117 nmol/L (87-318)
[2023-05-05 06:09] LABS: Anti Nuclear Antibody Titer 1:40 (Negative)
== END 2023-04-28 11:33 | disposition home or self-care (01) ==
LOC: ANHLAB 11:35
PROVIDERS: Nurse Practitioner Family; PCP Family Medicine; Visit Provider Internal Medicine Hematology & Oncology
DX: D72.819 Decreased white blood cell count, unspecified (principal); D50.8 Other iron deficiency anemias; K75.9 Inflammatory liver disease, unspecified
CPT/HCPCS: 36415; 80053; 80074; 82607; 82746; 83540; 83550; 83921; 85025; 86038; 86039

== ENCOUNTER 2023-08-16 13:09 | Outpatient (CLI) | payer MEDICARE, OTHER, SELFPAY ==
[2023-08-16 13:26] LABS: Basophils Percent Auto 0.5 % (0.2-1.2); Eosinophils Absolute Auto 0.1 K/mm3 (0-0.3); Hematocrit 41.8 % (37.0-47.0); Hemoglobin 14.4 g/dL (12.0-15.0); Immature Granulocyte Absolute 0.03 K/mm3 (0.00-0.031); Immature Granulocyte Percent A 0.7 % (0-0.5); Lymphocytes Absolute Auto 1.78 K/mm3 (0.9-3.2); Lymphocytes Percent Auto 40.1 % (18.3-44.2); Mean Corpuscular HGB Conc 34.4 g/dl (32-36); Mean Corpuscular Hemoglobin 31.8 pg (26-34); Mean Corpuscular Volume 92.3 fl (80-100); Mean Platelet Volume 8.9 fl (7.4-10.4); Monocytes Absolute Auto 0.5 K/mm3 (0.1-0.6); Neutrophils Percent Auto 45.7 % (45.5-73.1); Platelet Count Result 257 k/mm3 (150-375); Red Blood Count 4.53 M/mm3 (4.2-5.4); Red Cell Distribution Width 12.4 % (11.5-14.5); White Blood Count 4.4 K/mm3 (4.5-10.0)
== END 2023-08-16 13:10 | disposition home or self-care (01) ==
LOC: ANHLAB 13:12
PROVIDERS: Nurse Practitioner Family; PCP Family Medicine; Visit Provider Internal Medicine Hematology & Oncology
DX: D72.819 Decreased white blood cell count, unspecified (principal)
CPT/HCPCS: 36415; 85025

== ENCOUNTER 2024-02-16 12:17 | Outpatient (CLI) | payer MEDICARE, OTHER, SELFPAY ==
[2024-02-16 12:35] LABS: Basophils Percent Auto 1.1 % (0.2-1.2); Eosinophils Absolute Auto 0.1 K/mm3 (0-0.3); Eosinophils Percent Auto 2.5 % (0-4.4); Hematocrit 38.8 % (37.0-47.0); Hemoglobin 13.3 g/dL (12.0-15.0); Immature Granulocyte Absolute 0.01 K/mm3 (0.00-0.031); Immature Granulocyte Percent A 0.4 % (0-0.5); Lymphocytes Absolute Auto 0.96 K/mm3 (0.9-3.2); Lymphocytes Percent Auto 33.9 % (18.3-44.2); Mean Corpuscular HGB Conc 34.3 g/dl (32-36); Mean Corpuscular Hemoglobin 31.9 pg (26-34); Mean Platelet Volume 8.5 fl (7.4-10.4); Monocytes Absolute Auto 0.4 K/mm3 (0.1-0.6); Monocytes Percent Auto 13.4 % (2.6-8.5); Neutrophils Absolute Auto 1.4 K/mm3 (1.3-6.7); Neutrophils Percent Auto 48.7 % (45.5-73.1); Platelet Count Result 229 k/mm3 (150-375); Red Blood Count 4.17 M/mm3 (4.2-5.4); Red Cell Distribution Width 12.2 % (11.5-14.5); White Blood Count 2.8 K/mm3 (4.5-10.0)
[2024-02-16 12:41] LABS: Blood Urea Nitrogen 8 mg/dL (8-26); Carbon Dioxide 29 mmol/L (22-30); Chloride 89 mmol/L (98-109); Estimated Glomerular Filt Rate > 60; Glucose 109 mg/dL (70-105); Ionized Calcium (POC) 1.08 mmol/L (1.11-1.31); Potassium 3.4 mmol/L (3.5-4.9); Sodium 129 mmol/L (138-146)
== END 2024-02-16 12:18 | disposition home or self-care (01) ==
LOC: ANHLAB 12:20
PROVIDERS: PCP Family Medicine; Visit Provider Internal Medicine Hematology & Oncology
DX: D72.819 Decreased white blood cell count, unspecified (principal)
CPT/HCPCS: 36415; 80047; 85025

== ENCOUNTER 2024-06-10 08:50 | Emergency (ER) | payer MEDICARE, OTHER, SELFPAY ==
--- NOTE | ~2024-06-10 | XR_ITS ---
XR chest 2V Ordering provider: Asuncion Covarrubias APRN History: 73 years Female with . cough . Comparison: December 29, 2022 FINDINGS: MEDIASTINUM: The cardiac silhouette is not enlarged. LUNGS: No infiltrates, effusions or pneumothorax. OTHER: No free air under the diaphragm. Mild dextroscoliosis. IMPRESSION: No acute cardiopulmonary pathology Reviewed, dictated and finalized at location A.
[2024-06-10 09:03] VITALS: BP 150/79; PULSE 83; RESP 16; TEMP 36.8; O2SAT 97
--- NOTE | 2024-06-10 09:04 | ED.URI ---
HPI - URI/Sore Throat General Chief Complaint: Upper Respiratory Infection Stated Complaint: COUGH Time Seen by Provider: 06/10/24 09:08 Source: patient Mode of arrival: ambulatory Limitations: no limitations History of Present Illness HPI Narrative: 73 y/o female presented for c/o nasal congestion, cough, and chest congestion worsening x5 days. States she is coughing up thick mucous, more sob with exertion than baseline, and hears rumbling in the chest when laying down at night. Endorses a 'lung disorder' for which she uses advair. Also using albuterol inhaler more this week. Denies chest pain, palpitations, n/v/d/f/c. Related Data Home Medications ?Medication ?Instructions ?Recorded ?Confirmed ?Last Taken ?Type cholecalciferol (vitamin D3) 1,250 50,000 unit PO WEEKLY 01/18/19 06/10/24 10/08/19 History mcg (50,000 unit) capsule gabapentin 400 mg capsule 800 mg PO HS 10/10/19 06/10/24 10/04/21 History garlic 1 tab-cap PO DAILY 09/23/21 03/01/24 Unknown History magnesium 100 mg capsule 400 mg PO DAILY 09/23/21 06/10/24 Unknown History ikdkvhdvatqv-Qr-fvsb-minerals 1 tablet PO DAILY 09/23/21 06/10/24 Unknown History vit C 250 mg-vit E 90 mg-zinc 40 1 tablet PO DAILY 09/23/21 06/10/24 Unknown History mg-copper 1 xc-uhozka-yhojvf capsule (PreserVision AREDS-2) fluticasone 100 mcg-salmeterol 50 1 inh inhalation Q12H 04/14/22 06/10/24 Unknown History mcg/dose blistr powdr for inhalation (Advair Diskus) Allergies Allergy/AdvReac Type Severity Reaction Status Date / Time codeine Allergy Severe N/V/D Verified 06/10/24 09:00 dicyclomine Allergy Severe Weakness Verified 06/10/24 09:00 prochlorperazine Allergy Severe COULDN'T Verified 06/10/24 09:00 WALK/TALK cefaclor Allergy Intermediate Hives Verified 06/10/24 09:00 Cephalosporins Allergy Intermediate HIVES Verified 06/10/24 09:00 clarithromycin Allergy Mild N/V/D Verified 06/10/24 09:00 latex Allergy Rash Verified 06/10/24 09:00 clindamycin AdvReac Severe Gastrointestinal Verified 06/10/24 09:00 Upset tramadol AdvReac Severe N/V/D Verified 06/10/24 09:00 olmesartan AdvReac Intermediate Vomiting Verified 06/10/24 09:00 lisinopril AdvReac Mild cough Verified 06/10/24 09:00 Local Anesthetics W/ EPI Allergy Severe SHAKINESS, Uncoded 06/10/24 09:00 PALPITATIONS NOVACAINE Allergy Severe SHAKINESS/P Uncoded 06/10/24 09:00 ALPITATIONS Review of Systems Review of Systems: CONSTITUTIONAL: Denies body aches, fever, chills, or sweats. EYES: Denies visual changes, redness, or discharge. ENT: Reports rhinorrhea, congestion, denies sore throat, or otalgia. CARDIOVASCULAR: Denies chest pain, palpitations, or edema. RESPIRATORY: Reports cough, sob, wheezing. GASTROINTESTINAL: Denies abdominal pain, nausea, vomiting, or diarrhea. SKIN: Denies rash MUSCULOSKELETAL: Denies back pain, joint pain, or myalgia. NEUROLOGIC: Denies headache, numbness, tingling, or weakness. All systems reviewed & are unremarkable except as noted in HPI and below PMFSH Past Medical History Medical History BMI 25.0-25.9,adult Asthma Mitral valve prolapse Splenic artery aneurysm HTN (hypertension) Age related osteoporosis Depression EREN (generalized anxiety disorder) Hyperlipidemia Hypothyroidism, unspecified Major depression, chronic Surgical History Surgical History Hx laparoscopic cholecystectomy 10/17/2019 History of removal of cyst History of section Family History Family History Mother Family history of Alzheimer's disease Hypertension Father Acute myocardial infarction Other Asthma Social History Social History Social History: Smoking status: Never smoker Second hand tobacco smoke exposure: No Alcohol intake: never Substance use: never Substance use type: does not use Lack of Transportation: No Lack of Food: Never True Current Housing: I Have Housing Concerned About Future Housing: No Difficulty Paying Gas/Electric Bills: No Difficulty Paying for Meds: No Currently Unemployed: No Education: Master's Degree or Higher Difficulty w/ Childcare or Family Care: No Living arrangements: with family Occupation/Education: occupation Gender identity (if verbalized by the patient): Female Sexual Orientation (if Verbalized by the Patient): Straight or Heterosexual Spiritual care concerns: No Comments At time of signature, I have reviewed and agree with nursing past medical, surgical, social and family history unless otherwise noted. Please see nursing chart for further information. There is no relevant family history pertinent to the presenting complaint Exam Narrative: GENERAL: Well-appearing, in no acute distress. EYES: EOMI. No redness or drainage. Conjunctivae normal. ENT: Mucous membranes pink and moist. Nasal congestion and rhinorrhea. TMs normal with clear effusion bilaterally. Throat normal. Uvula midline. NECK: Normal AROM. Supple. CHEST: No respiratory distress. Coarse and scattered Wheezing to all mejias. HEART: Regular rate and rhythm. No murmur appreciated. SKIN: Warm, dry, no rash. Capillary refill normal. Normal skin turgor. NEURO: Alert and oriented x3. Gait steady. PSYCH: Normal affect. Course Course Emergency Course: Patient is aware of diagnosis, understands and agrees to treatment plan. Anticipatory guidance given. Patient agrees to follow-up as directed and is aware of reasons to seek care at the emergency department. Portions of this record may have been created with voice recognition software Level of Care: Express Care Visit Vital Signs Vital signs: Vital Signs Temperature 98.3 F 06/10/24 09:03 Pulse Rate 83 06/10/24 09:03 Respiratory Rate 16 06/10/24 09:03 Blood Pressure 150/79 H 06/10/24 09:03 Pulse Oximetry 97 06/10/24 09:03 Temperature 98.3 F 06/10/24 09:03 Pulse Rate 83 06/10/24 09:03 Respiratory Rate 16 06/10/24 09:03 Blood Pressure 150/79 H 06/10/24 09:03 Pulse Oximetry 97 06/10/24 09:03 MDM - URI/Sore Throat MDM Narrative Medical decision making narrative: Discussed physical exam findings and CXR. Reviewed Rx. Advised supportive measures and signs/symptoms to go to the ER. Pt is appropriate for outpt treatment and f/u. Differential Diagnosis Differential diagnosis: Likely upper respiratory infection, sinusitis, viral infection, bronchitis, pharyngitis and other (Angioedema, perforation, asthma, pneumonia, PE, tension pneumothorax, cardiac tamponade GA, pericarditis, pleural effusion, CHF, bronchitis, cardiac arrhythmia) Imaging Data Radiologist's impression: Patient: Asuncion Loja : 1950 MR#: [id number] Age: 73 Acct:[id number] Loc: [id number] ADM Date: 06/10/24Attending Dr: Ordering Physician: Asuncion Covarrubias APRN Date of Service: 06/10/24 Procedure(s): XR chest 2V Accession Number(s): [id number] cc: Romulo Saucedo MD; Patricia Ngo APRN; Asuncion Covarrubias APRN~ XR chest 2V Ordering provider: Asuncion Covarrubias APRN History: 73 years Female with . cough . Comparison: December 29, 2022 FINDINGS: MEDIASTINUM: The cardiac silhouette is not enlarged. LUNGS: No infiltrates, effusions or pneumothorax. OTHER: No free air under the diaphragm. Mild dextroscoliosis. IMPRESSION: No acute cardiopulmonary pathology Discharge Plan Discharge Clinical Impression: Bronchitis Patient Disposition: Home Condition: Stable Instructions: Antibiotic Form, Acute Bronchitis (ED) Additional Instructions: Acute bronchitis can be contagious because it is usually caused by infection with a virus or bacteria. It is usually for a few days but you can be contagious for up to one week. Avoid crowds until you do not have a fever and symptoms are improved Take medication as directed Recommendations: Use your albuterol inhaler every 6 hours. Flonase spray and Zyrtec (or Claritin/Tania) over the counter Cough syrup may cause drowsiness; avoid driving or take it at night time. Tylenol every 8 hours as needed for pain Rest, fluids, and increase humidity of the air at home. Follow up with your primary care provider call tomorrow to schedule an appointment Go to the ER for worsening symptoms or concerns Patient Language: Swedish Prescriptions: New methylprednisolone [Medrol (Walter)] 4 mg tablets,dose pack See Rx Instructions .ROUTE .COMPLEX Qty: 21 0RF Rx Instructions: orally per package directions No Action cholecalciferol (vitamin D3) 50,000 unit capsule 50,000 unit PO WEEKLY fluticasone propion-salmeterol [Advair Diskus] 100-50 mcg/dose blister with device 1 inh inhalation Q12H buspirone 10 mg tablet 10 mg PO TID Qty: 270 1RF gabapentin 400 mg capsule 800 mg PO HS magnesium 100 mg Capsule 400 mg PO DAILY Multiple Vitamin, Womens Tablet 1 tablet PO DAILY PreserVision AREDS-2 250-90-40-1 mg Capsule 1 tablet PO DAILY garlic 1 tab-cap PO DAILY cyclobenzaprine 10 mg tablet See Rx Instructions .ROUTE .COMPLEX Qty: 180 3RF Dose Instruction: TAKE 1 TABLET TWICE A DAY NEEDED FOR MUSCLE SPASM Rx Instructions: TAKE 1 TABLET TWICE A DAY NEEDED FOR MUSCLE SPASM albuterol sulfate 90 mcg/actuation HFA aerosol inhaler See Rx Instructions .ROUTE .COMPLEX Qty: 8.5 0RF Dose Instruction: USE 1 INHALATION EVERY 4 HOURS NEEDED FOR SHORTNESS OF BREATH OR WHEEZING Rx Instructions: USE 1 INHALATION EVERY 4 HOURS NEEDED FOR SHORTNESS OF BREATH OR WHEEZING primidone 50 mg tablet See Rx Instructions .ROUTE .COMPLEX Qty: 240 1RF Dose Instruction: TAKE 2 TABLETS BY MOUTH AT BEDTIME Rx Instructions: take 1 tablet in the morning, 1 tablet in the afternoon, and 2 tablets at bedtime omeprazole 40 mg capsule,delayed release(DR/EC) 40 mg PO DAILY Qty: 90 3RF hydrochlorothiazide 25 mg tablet See Rx Instructions .ROUTE .COMPLEX Qty: 90 3RF Dose Instruction: TAKE 1 TABLET DAILY Rx Instructions: TAKE 1 TABLET DAILY triamcinolone acetonide 0.1 % cream 1 applic topical BID PRN (Reason: rash) Qty: 15 2RF Rx Instructions: Apply to affected area as needed for no more than 1-2 weeks levothyroxine 75 mcg tablet 75 mcg PO DAILY Qty: 90 2RF colestipol 1 gram tablet 3 g PO DAILY Qty: 270 1RF Rx Instructions: swallow whole tab w/any liquid;do not crush/chew/cut;administer other meds 1hr before/4hr after taking dose escitalopram oxalate [Lexapro] 20 mg tablet 20 mg PO DAILY Qty: 90 3RF Follow-up/Referrals: Romulo Saucedo MD [Primary Care Provider] - Time of Disposition: 10:02
[2024-06-11 11:56] LABS: EDCOVIDSCREEN Negative (Negative); EDINFLUASCREEN Negative (Negative); EDINFLUBSCREEN Negative (Negative)
== END 2024-06-10 10:10 | disposition home or self-care (01) ==
PROVIDERS: Nurse Practitioner Family; PCP Family Medicine
DX: J40 Bronchitis, not specified as acute or chronic (principal); Z20.822 Contact with and (suspected) exposure to COVID-19; I10 Essential (primary) hypertension; E78.5 Hyperlipidemia, unspecified; E03.9 Hypothyroidism, unspecified; I34.1 Nonrheumatic mitral (valve) prolapse; J45.909 Unspecified asthma, uncomplicated; M81.0 Age-related osteoporosis without current pathological fracture; F41.9 Anxiety disorder, unspecified; F32.9 Major depressive disorder, single episode, unspecified; I72.8 Aneurysm of other specified arteries
CPT/HCPCS: 71046; 87426; 87804; 99213; G0463

== ENCOUNTER 2024-08-23 10:05 | Emergency (ER) | payer MEDICARE, OTHER, SELFPAY ==
--- NOTE | ~2024-08-23 | XR_ITS ---
Left elbow Technique: AP, oblique, and lateral views were obtained. Clinical History: Pain Findings: No acute fracture or dislocation is seen. Osseous alignment is anatomic. Joint spaces are p reserved. There is no displacement of the fat pads, and soft tissues are unremarkable. Impression: Unremarkable radiographs. Reviewed, dictated and finalized at location . Impression: Unremarkable radiographs.
--- NOTE | ~2024-08-23 | CT_ITS ---
CT diagnostic chest wo con Ordering provider: Shara Fournier PA-C History: 73 years Female with . L anterior/posterior CP s/p fall 5 days ago . Comparison: September 11, 2014 Technique: CT chest without IV contrast.Radiation reduction technique utilized.The dose-length produc t was 129.08 mGy-cm. FINDINGS: VISUALIZED THORACIC INLET: Normal. MEDIASTINUM: Aorta/coronary arteries: Mild atheromatous disease. Heart/other: The heart is not enlarged. Lymph nodes: No mediastinal or hilar adenopathy. LUNGS: No pulmonary nodules or masses. No infiltrates or effusions. No pneumothorax. Dependent atelec tatic changes. VISUALIZED UPPER ABDOMEN: Small sliding hiatus hernia. 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 Hypo density in the left lobe of the liver measuring 1.5 cm which is slightly larger than the previous prashanth dy. Ultrasound evaluation advised. Status post cholecystectomy. Otherwise, the visualized upper abdom en is normal. MUSCULOSKELETAL: Soft tissues: The superficial soft tissues are normal. Bones: Age appropriate degenerative changes of the spine. Dextroscoliosis. IMPRESSION: 1. No acute cardiopulmonary pathology. 2. Sliding hiatus hernia. 3. Hypodensity in the left lower the liver. Ultrasound evaluation advised. 4. Calcified aneurysm in the hilum of the spleen unchanged. Reviewed, dictated and finalized at location A.
--- NOTE | ~2024-08-23 | XR_ITS ---
AP view of the pelvis and AP and lateral views of the right hip Clinical history: Pain Findings: No acute fracture or dislocation is seen. Osseous alignment is anatomic. Bilateral hip and SI joint spaces are preserved. Soft tissues are unremarkable. Impression: No significant abnormality is seen. Reviewed, dictated and finalized at location . Impression: No significant abnormality is seen.
[2024-08-23 10:08] VITALS: BP 137/72; PULSE 81; RESP 16; TEMP 36.7; O2SAT 97
--- OUTSIDE RECORDS SUMMARY | 2024-08-23 10:08 | XMS_ITS | Encounter Summary ---
Author Organization [facility] Address [address] [place] [address] Care Team Providers Care Broadcast Program Director Name Role Phone Des Mott MD Primary Care Provider [phone] Romulo Saucedo MD Primary Care Provider Encounter Details Date Type Department Care Team (Late st Contact Info) Description 09/08/2017 Lab Requisition [facility] D[facility] Lab [address] [facility], [place] [phone] Asuncion Morin, [address] [facility] 3 [place] [address] Social History Tobacco Use Types Packs/Day Years Used Date Smoking Tobacco: Never Smokeless Tobacco: Never Alcohol Use Standard Drinks/Week Comments No 0 (1 standard drink = 0.6 oz pur e alcohol) Comments Unknown Sex and Gender Information Value Date Recorded Sex Assigned at Female 05/06/2022 11:08 AM CDT 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 Female 5:55 PM 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 Gender Identity Female 05/06/2022 11:08 AM CDT Sexual Orientation Not on file documented as of this encounter Plan of Treatment Not on file documented as of this encounter Procedures Procedure Name Priority Date/Time Associated Diagnosis Comments DERMATOPATH TECHNICAL REPORT Routine 09/06/2017 12:00 AM CDT documented in this encounter Results * DERMATOPATH TECHNICAL REPORT (09/06/2017 12:00 AM CDT) Case Report Dermatopathology Report Case: [id number] Authorizing Provider: Asuncion Morin DO Collected: 09/06/2017 12:00 AM Pathologist: Joyce Casey MD Received: 09/08/2017 07:18 AM Specimens: A) - Skin, right paraspinal back B) - Skin, right upper back 11:52 AM CDT DERMATOPATHOLOGY LABORATORY Addendum 1 At the request of the diagnosing physician, technical component for [place]-1/Melan A was performed on specimens A and B by [facility] Dermatopathology Laboratory. 11:52 AM CDT DERMATOPATHOLOGY LABORATORY Addendum electronically signed by Joyce Casey MD on 09/12/2017 at 1152 CDT Clinical History A-B: Nevus irrirated vs MM 11:52 AM CDT DERMATOPATHOLOGY LABORATORY Gross Description Specimen A: Received is one formalin filled container labeled with the patient's name and designated right paraspinal back. The specimen consists of a shave biopsy measuring 10x8x1 mm. Jar 0. Specimen B: Received is one formalin filled container labeled with the patient's name and designated right upper back. The specimen consists of a shave biopsy measuring 9x7x1 mm. Jar 0. [facility] Dermatopathology Laboratory performed the technical component only. 11:52 AM CDT DERMATOPATHOLOGY LABORATORY Embedded Images 11:52 AM CDT DERMATOPATHOLOGY LABORATORY DISCLAIMER An external and internal positive and negative controls are appropriate for the histochemical, immunohistochemical and immunofluorescence stain(s) in this case (if any), except where stated explicitly. The performance characteristics of the stain(s) cited in this report were developed and its performance characteristic determined by the Dermatopathology Laboratory at [facility]. These tests need not be, and therefore are not, approved by the [place] Food and Drug Administration. The tests are used for clinical purposes. 11:52 AM CDT DERMATOPATHOLOGY LABORATORY at 1723 CDT Pathology/Cytology TISSUE SPECIMEN FROM SKIN / Unknown 09/06/2017 09/08/2017 7:18 AM CDT Miscellaneous samples (specimen) TISSUE SPECIMEN FROM SKIN / Unknown 09/06/2017 09/08/2017 7:18 AM CDT us Asuncion Morin DO LAB - PATHOLOGY/CYTOLOGY ORDERABLES Edited Result - Final DERMATOPATHOLOGY LABORATORY [facility] - Department of Dermatology [address] [facility], 5th Floor Lab B [address] [phone] documented in this encounter Visit Diagnoses Not on filedocumented in this encounter Care Teams Broadcast Program Director Relationship Specialty Start Date End Date Des Mott MD [address] [place] [address] PCP - General 07/28/10 11/12/17 Romulo Saucedo MD [address] [place] [address] PCP - General Family Medicine 11/13/17 documented as of this encounter
--- OUTSIDE RECORDS SUMMARY | 2024-08-23 10:08 | XMS_ITS | Encounter Summary ---
Author Organization [facility] Address [address] [facility] [place] [address] Care Team Providers Care Keyboard Instrument Repairer Name Role Phone Romulo Saucedo MD Primary Care Provider [phone] Encounter Details Date Type Department Care Team (Late st Contact Info) Description 10/02/2019 Lab Requisition [facility] [address] 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 Gender Identity Female 05/06/2022 11:08 AM CDT Sexual Orientation Not on file documented as of this encounter Plan of Treatment Not on file documented as of this encounter Procedures Procedure Name Priority Date/Time Associated Diagnosis Comments DERMATOPATHOLOGY Routine 10/02/2019 12:0 0 AM CDT documented in this encounter Results * DERMATOPATHOLOGY (10/02/2019 12:00 AM CDT) Case Report Dermatopathology Report Case: [id number] Authorizing Provider: Mary Robbins MD Collected: 10/02/2019 12:00 AM Ordering Location: [facility] DermPath Lab Received: 10/02/2019 10:42 AM Pathologist: Tammie Santana MD Specimens: A) - Skin, crown B) - Skin, post crown 0 1:52 PM CDT DERMATOPATHOLOGY LABORATORY Final Diagnosis Specimen A. SKIN, crown: TRICHILEMMAL (PILAR) CYST WITH CALCIFICATION (L72.12) Specimen B. SKIN, post crown: TRICHILEMMAL (PILAR) CYST (L72.12) 0 1:52 PM CDT DERMATOPATHOLOGY LABORATORY at 1352 CDT Clinical History A-B: R/O cyst. 0 1:52 PM CDT DERMATOPATHOLOGY LABORATORY Gross Description Specimen A: Received is one formalin filled container labeled with the patient's name and designated crown. The specimen consists of a 1p6s19ou excision of skin. The specimen is bisected and submitted in cassette 1. Jar 0. Specimen B: Received is one formalin filled container labeled with the patient's name and designated post crown. The specimen consists of a 5x5x12 bisected and 7s7c4zs excision (2 pieces) of skin. The specimen is submitted in cassette 1. Jar 0. 0 1:52 PM CDT DERMATOPATHOLOGY LABORATORY Microscopic Description Specimen A. SKIN, crown: Sections show a cyst that is lined by stratified squamous epithelium that shows trichilemmal keratinization (no granular layer). There is homogeneous pink keratin and aggregates of homogenous amorphous basophilic material consistent with calcium within the cyst. Specimen B. SKIN, post crown: Sections show a cyst that is lined by stratified squamous epithelium that shows trichilemmal keratinization (no granular layer). There is homogeneous pink keratin within the cyst. 0 1:52 PM CDT DERMATOPATHOLOGY LABORATORY Disclaimer An external and internal positive and negative controls are appropriate for the histochemical, immunohistochemical and immunofluorescence stain(s) in this case (if any), except where stated explicitly. The performance characteristics of the stain(s) cited in this report were developed and its performance characteristic determined by the Dermatopathology Laboratory at [facility], directed by Dr. Jesi Elizabeth. These tests need not be, and therefore are not, approved by the [place] Food and Drug Administration. The tests are used for clinical purposes. Billing Codes Specimen Charges Stain Charges 68737 96459 1 1 0 1:52 PM CDT DERMATOPATHOLOGY LABORATORY Embedded Images 0 1:52 PM CDT DERMATOPATHOLOGY LABORATORY Pathology/Cytology TISSUE SPECIMEN FROM SKIN / Unknown 10/02/2019 10/02/2019 10:42 AM CDT Miscellaneous samples (specimen) TISSUE SPECIMEN FROM SKIN / Unknown 10/02/2019 10/02/2019 10:42 AM CDT Mary Robbins MD LAB - PATHOLOGY/CYTOLOGY ORD ERABLES Final Result Performing Organization Address City/State/[facility] Co de Phone Number DERMATOPATHOLOGY LABORATORY [facility] - Department of Dermatology [facility] [phone] documented in this encounter Visit Diagnoses Not on filedocumented in this encounter Care Teams Keyboard Instrument Repairer Relationship Specialty Start Date End Date Romulo Saucedo MD [address] [place] [address] PCP - General Family Medicine 11/13/17 documented as of this encounter
--- OUTSIDE RECORDS SUMMARY | 2024-08-23 10:08 | XMS_ITS | Encounter Summary ---
Author Organization [facility] Address [address] [facility] [place] [address] Care Team Providers Care Checker Name Role Phone Romulo Saucedo MD Primary Care Provider [phone] Encounter Details Date Type Department Care Team (Late st Contact Info) Description 12/26/2019 Lab Requisition [facility] [address] [facility] [place] [phone] Mary Robbins MD [address] [facility] 3 [place] [address] Social History Tobacco Use Types Packs/Day Years Used Date Smoking Tobacco: Never Smokeless Tobacco: Never Alcohol Use Standard Drinks/Week Comments No 0 (1 standard drink = 0.6 oz pur e alcohol) Comments Unknown Sex and Gender Information Value Date Recorded Sex Assigned at Female 05/06/2022 11:08 AM CDT 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 Sex Female 5:55 PM CURB WORKER Gender Identity Female 05/06/2022 11:08 AM CDT Sexual Orientation Not on file documented as of this encounter Plan of Treatment Not on file documented as of this encounter Procedures Procedure Name Priority Date/Time Associated Diagnosis Comments DERMATOPATHOLOGY Routine 12/25/2019 12:0 0 AM CURB WORKER documented in this encounter Results * DERMATOPATHOLOGY (12/25/2019 12:00 AM CURB WORKER) Case Report Dermatopathology Report Case: [id number] Authorizing Provider: Mary Robbins MD Collected: 12/25/2019 12:00 AM Ordering Location: [facility] DermPath Lab Received: 12/26/2019 07:25 AM Pathologist: Demarcus Elizabeth MD Specimens: A) - Skin, left scalp B) - Skin, left crown C) - Skin, right crown 0 4:10 PM [facility] DERMATOPATHOLOGY LABORATORY Final Diagnosis Specimen A. SKIN, left scalp: TRICHILEMMAL (PILAR) CYST WITH CALCIFICATION (L72.12) Specimen B. SKIN, left crown: TRICHILEMMAL (PILAR) CYST WITH CALCIFICATION (L72.12) Specimen C. SKIN, right crown: TRICHILEMMAL (PILAR) CYST (L72.12) 0 4:10 PM [facility] DERMATOPATHOLOGY LABORATORY at 1610 CURB WORKER Clinical History A-C: R/O cyst. 0 4:10 PM [facility] DERMATOPATHOLOGY LABORATORY Gross Description Specimen A: Received is one formalin filled container labeled with the patient's name and designated left scalp. The specimen consists of a 7e6n89jx excision, bisected. Jar 0. Specimen B: Received is one formalin filled container labeled with the patient's name and designated left crown. The specimen consists of an excision submitted in 2 pieces measuring 3x7i8so, bisected, & 32y3o7yd. Jar 0+. Specimen C: Received is one formalin filled container labeled with the patient's name and designated right crown. The specimen consists of an excision submitted in 2 pieces measuring 2o7z05fv, bisected, & 8r6o7kp. Jar 0. 0 4:10 PM [facility] DERMATOPATHOLOGY LABORATORY Microscopic Description Specimen A. SKIN, left scalp: Sections show a cyst that is lined by stratified squamous epithelium that shows trichilemmal keratinization (no granular layer). There is homogeneous pink keratin and aggregates of homogenous amorphous basophilic material consistent with calcium within the cyst. Specimen B. SKIN, left crown: Sections show a cyst that is lined by stratified squamous epithelium that shows trichilemmal keratinization (no granular layer). There is homogeneous pink keratin and aggregates of homogenous amorphous basophilic material consistent with calcium within the cyst. Specimen C. SKIN, right crown: Sections show a cyst that is lined by stratified squamous epithelium that shows trichilemmal keratinization (no granular layer). There is homogeneous pink keratin within the cyst. 0 4:10 PM CURB WORKER DERMATOPATHOLOGY LABORATORY Disclaimer An external and internal positive and negative controls are appropriate for the histochemical, immunohistochemical and immunofluorescence stain(s) in this case (if any), except where stated explicitly. The performance characteristics of the stain(s) cited in this report were developed and its performance characteristic determined by the Dermatopathology Laboratory at [facility], directed by Dr. Jesi Elizabeth. These tests need not be, and therefore are not, approved by the [place] Food and Drug Administration. The tests are used for clinical purposes. Billing Codes Specimen Charges Stain Charges 71657 [id number] 50351 1 1 1 0 4:10 PM CURB WORKER DERMATOPATHOLOGY LABORATORY Embedded Images 0 4:10 PM CURB WORKER DERMATOPATHOLOGY LABORATORY Pathology/Cytology TISSUE SPECIMEN FROM SKIN / Unknown 12/25/2019 12/26/2019 7:25 AM CURB WORKER Miscellaneous samples (specimen) TISSUE SPECIMEN FROM SKIN / Unknown 12/25/2019 12/26/2019 7:25 AM CURB WORKER Miscellaneous samples (specimen) TISSUE SPECIMEN FROM SKIN / Unknown 12/25/2019 12/26/2019 7:25 AM CURB WORKER Mary Robbins MD LAB - PATHOLOGY/CYTOLOGY ORD ERABLES Final Result DERMATOPATHOLOGY LABORATORY [facility] - Department of Dermatology [facility] Special[facility] Medicine [address] [place] [address], [address] [phone] documented in this encounter Visit Diagnoses Not on filedocumented in this encounter Care Teams Checker Relationship Specialty Start Date End Date Romulo Saucedo MD [address] [place] [address] PCP - General Family Medicine 11/13/17 documented as of this encounter
--- OUTSIDE RECORDS SUMMARY | 2024-08-23 10:08 | XMS_ITS | Clinical Summary ---
Author Organization [facility] Address [address] [place] [address] Care Team Providers Care Orthodontist Assistant Name Role Phone Romulo Saucedo MD Primary Care Provider [phone] Allergies Active Allergy Reactions Criticality Noted Date Comments Cefaclor Hives High 08/07/2010 Other reaction(s): Skin Reactions Reaction: Hives, Clarithromycin Diarrhea,Nausea and Vomiting,Vomiting 08/07/2010 Reaction: Vomiting, Diarrhea, Clindamycin Other (see comment) 02/09/2022 Codeine Nausea and Vomiting,Vomiting 08/07/2010 Reaction: Vomiting, Hydrocodone Vomiting 02/09/2022 Reaction: Vomiting, Latex Rash Low 08/07/2010 Reaction: Rash, Oxycodone Nausea and Vomiting 02/09/2022 Procaine Palpitations Low 02/09/2022 Reaction: Palpitations, Prochlorperazine Other (see comment) Low 08/07/2010 Can't walk/talk Reaction: Other, Propoxyphene Nausea and Vomiting,Unknown 08/07/2010 Tramadol Nausea and Vomiting, Other (see comment),Unknown,Vomiting 08/07/2010 jerking Other reaction(s): Other jerking Reaction: Vomiting, Medications busPIRone (BUSPAR) 10 MG tablet Take 1 tablet (10 mg total) by mouth nightly at bedtime. 09/15/19 Active vitamin D2, ergocalciferol, (DRISDOL) 79975 UNITS capsule Take 1 capsule (50,000 Units total) by mouth once a week. Takes on Tuesday Active escitalopram (LEXAPRO) 20 MG tablet Take 1 tablet (20 mg total) by mouth daily. 08/13/19 Active hydroCHLOROthiazi de (MICROZIDE) 12.5 MG tablet Take 0.5 tablets (6.25 mg total) by mouth daily. 09/06/19 22 Active levothyroxine (SYNTHROID) 75 MCG tablet Take 1 tablet (75 mcg total) by mouth daily. 10/02/19 22 Active omeprazole (PRILOSEC) 40 MG capsule Take 1 capsule (40 mg total) by mouth daily. Active calcium carbonate (OS-ADMON) 1250 (500 Ca) MG tablet Take 1 tablet (1,250 mg total) by mouth daily. Active multi vitamin/minerals (THERA-M ENHANCED) tablet Take 1 tablet by mouth daily. Active ondansetron (ZOFRAN-ODT) 4 MG disintegrating tablet Take 1 tablet (4 mg total) by mouth every 8 (eight) hours as needed for Nausea. 20 tablet 02/26/19 23 Active cyclobenzaprine (FLEXERIL) 10 MG tabletIndications :Cervical dystonia TAKE 1 TABLET TWICE A DAY NEEDED FOR MUSCLE SPASM 180 tablet 3 11/03/19 24 Active colestipol (COLESTID) 1 g tabletIndications :Gluten enteropathy,Enter itis TAKE 3 TABLETS TWICE A DAY 180 tablet 6 11/28/19 24 Active primidone (MYSOLINE) 50 MG tabletIndications :Benign familial tremor TAKE 2 TABLETS THREE TIMES A DAY 540 tablet 3 08/07/19 25 Active gabapentin (NEURONTIN) 400 MG capsuleIndication s:Cervical dystonia Take 1 capsule (400 mg total) by mouth 2 (two) times daily. 180 capsule 2 08/15/19 25 Active gabapentin (NEURONTIN) 400 MG capsule Take 1 capsule (400 mg total) by mouth nightly at bedtime. 200 mg in AM and noon 600 mg at 21:00 400 mg at 22:00 12/01/19 22 025 Discontinued(D ose adjustment) gabapentin (NEURONTIN) 600 MG tablet Take 1 tablet (600 mg total) by mouth every evening. 200 mg in AM and noon 600 mg at 21:00 400 mg at 22:00 025 Discontinued(D ose adjustment) gabapentin (NEURONTIN) 100 MG capsule Take 2 capsules (200 mg total) by mouth 2 (two) times a day. 200 mg in AM and noon 600 mg at 21:00 400 mg at 22:00 025 Discontinued(D ose adjustment) primidone (MYSOLINE) 50 MG tabletIndications :Benign familial tremor Take 2 tablets (100 mg total) by mouth 3 (three) times daily. 540 tablet 3 06/01/19 24 025 Discontinued gabapentin (NEURONTIN) 100 MG capsuleIndication s:Cervical dystonia TAKE 2 CAPSULES TWICE A DAY 360 capsule 3 03/05/19 25 025 Discontinued(D ose adjustment) gabapentin (NEURONTIN) 400 MG capsuleIndication s:Cervical dystonia TAKE 1 CAPSULE NIGHTLY AT BEDTIME 90 capsule 3 03/06/19 25 025 Discontinued(R eorder) Active Problems Problem Noted Date Diagnosed Date Cervical dystonia 10/27/2023 Enterocolitis 02/20/2022 Diarrhea due to malabsorption ([facility]) 02/20/19 23 Overview (02/26/2022): Added automatically from request for surgery [id number] Primary hypertension 07/23/2021 Overview (02/21/2022): Last Assessment & Plan: Hypertension chronic and controlled. Continue current medical therapy. Splenic artery aneurysm 07/23/2021 Overview (02/21/2022): Last Assessment & Plan: Patient following up status post CT a obtained for a known splenic artery aneurysm. CT a that was obtained on 08/20/2021 measures the splenic artery aneurysm at 1.5 x 1.3 cm. Remains unchanged from previous CT in 2019. Patient denies any current abdominal pain back pain or flank pain. Plan: Follow-up in 1 year with [facility] for routine surveillance. Night muscle spasms 08/26/2020 Inactivity 07/04/2019 Age-related osteoporosis wit hout current pathological fracture 07/24/2015 Overview (02/21/2022): Ms. ORTEGA is being treated for osteoporosis with calcium 500 mg twice a day and vitamin D 50,000 IU weekly and she received IV Reclast in 10/25. Prior to that she received Prolia (denosumab) twice yearly for 4 injections (last one in 03/27) and 20 months of the Forteo therapy. Prior to Forteo she had Reclast once or twice. She's had no falls nor fractures. Last Assessment & Plan: Ms. ORTEGA is currently being treated for osteoporosis with calcium and vitamin D and she's had extensive medication in the past including IV Reclast in 10/25. Prior to that she had Forteo (teriparatide) for 20 months followed by Prolia twice yearly (s/p 4 injections). Her bone density is wosened compared to last year but overall improved significantly over her baseline. She should continue calcium of 8124-3515 mg per day through dietary intake or supplements and vitamin D 50,000 IU weekly and I'll redose her IV Reclast now. Add more exercise. Gastroesophageal reflux disease 10/31/2014 Scoliosis 10/31/2014 Thyroid activity decreased 10/31/2014 Overview (02/21/2022): Last Assessment & Plan: Chronic and controlled. Continue Synthroid. Vitamin D deficiency disease 05/03/2014 Dermatofibroma 10/11/2013 Acute sinusitis 04/23/2013 Skin lesion 12/06/2012 Abnormal weight gain 09/18/2012 Benign familial tremor 09/18/2012 Headache 09/18/2012 Folliculitis 06/06/2012 Pain in joint 05/16/2012 Vitamin B12 deficiency 05/16/2012 Depression 02/12/2012 Insomnia 02/12/2012 Pain of lower leg, unspecified laterality 2011 Open wound of left index finger without damage t o nail 12/15/2011 Right lower quadrant abdominal pain 02/12/2011 Vaginal discharge 12/08/2010 Other specified noninflammatory disorders of vag mikey 09/03/2010 Resolved Problems Problem Noted Date Diagnosed Date Resolved Date Encounter for preventive health examination 08/25/2011 02/22/2022 Encounters Date Type Department Care Team Description 08/23/2024 8:20 AM CDT Office Visit [facility] - [address], [address] [place] [phone] Blaire Mccurdy MD Botox 08/23/2024 Travel 08/13/2024 Orders Only [facility] - [address], [address] [place] [phone] Bindu Marie MA 08/13/2024 Orders Only [facility] - [address], [address] [place] [address] Bindu Marie MA 08/13/2024 Telephone [facility] - [address], [address] [place] [phone] Blaire Mccurdy MD Medication 07/23/2024 9:00 AM CDT Office Visit [facility] - [address], [address] [place] [phone] Blaire Mccrudy MD Follow Up 07/23/2024 Travel 05/24/2024 Therapy Plan [address], [address] [place] [phone] Blaire Mccurdy MD from Last 3 Months Family History Medical History Relation Comments Heart Attack Father Breast Cancer Neg Hx Relation Status Comments Father Social History Tobacco Use Types Packs/Day Years Used Date Smoking Tobacco: Never Passive Smoke Exposure: Never Smokeless Tobacco: Never Tobacco Cessation:Counseling Given: Yes Alcohol Use Standard Drinks/Week Comments Never 0 (1 standard drink = 0.6 oz pur e alcohol) Humiliation, Afraid, Rape, and Kick questionnair e Answer Date Recorded Within the last year, have y ou been afraid of your partner or ex-partner? No 02/20/2022 Within the last year, have y ou been humiliated or emotionally abused in other ways by your partner or ex-partner? No Within the last year, have y ou been kicked, hit, slapped, or otherwise physically hurt by your partner or ex-partner? No 02/20/2022 Within the last year, have y ou been raped or forced to have any kind of sexual activity by your partner or ex-partner? No 02/20/2022 Overall Financial Resource Strain (CARDIA) Answe r Date Recorded How hard is it for you to pa y for the very basics like food, housing, medical care, and heating? Somewhat hard 02/21/2022 PHQ-2 Answer Date Recorded Patient Health Questionnaire-2 Score 0 08/23/2024 Hunger Vital Sign Answer Date Recorded Within the past 12 months, y ou worried that your food would run out before you got the money to buy more. Never true 02/20/19 23 Within the past 12 months, t he food you bought just didn't last and you didn't have money to get more. Never true 02/20/2022 PRAPARE - Transportation Answer Date Re corded In the past 12 months, has l ack of transportation kept you from medical appointments or from getting medications? No 02/07 In the past 12 months, has l ack of transportation kept you from meetings, work, or from getting things needed for daily living? No 02/20/2022 Housing Stability Vital Sign Answer Karthikeyan e Recorded In the last 12 months, was t here a time when you were not able to pay the mortgage or rent on time? No 02/21/2022 In the last 12 months, how many places have you lived? 1 02/21/2022 In the last 12 months, was t here a time when you did not have a steady place to sleep or slept in a penitentiary (including now)? 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 Respiratory Rate 18 05/13/2023 2:31 PM CDT Oxygen Saturation 99% 08/23/2024 8:33 AM CDT Inhaled Oxygen Concentration - - Weight 64 kg (141 lb) 08/23/2024 8:33 AM CDT Height 157.5 cm (5' 2) 11/09/2023 9:14 AM CDT Body Mass Index 25.79 11/09/2023 9:14 AM CDT Plan of Treatment Upcoming Encounters Date Type Department Care Team (Late st Contact Info) Description 10/25/2024 9:00 AM CDT [facility] [address], [facility] [address] [place] [phone] Blaire Mccurdy MD [address] [place] [phone] 11/15/2024 9:20 AM CDT Office Visit [facility] - [address], [address] [place] [phone] Blaire Mccurdy MD [address] [place] [phone] Health Maintenance Due Date Last Done Comments Hepatitis C 11/27/1969 DTaP, Tdap and Td Vaccines (1 - Tdap) 11/27/1970 Pneumococcal Vaccine: 50+ Years (1 of 2 - PCV) 11/27/1970 Zoster Vaccines (1 of 2) 11/27/2001 RSV Immunization or 60+ Years (1 - Risk 60-74 years 1-dose series) 2011 Annual Medicare Wellness Visit 11/27/2016 Colorectal Cancer Screening FIT/FOBT (1 Year) 02/09/2023 02/09/2022 COVID-19 Vaccine ( season) 2023 Mammogram Screening 07/07/2024 07/07/2022, 06/18/2022, 06/15/2021 Dexa Scan (General) Completed 01/19/2024, 12/23/2022, 12/03/2021, Additional history exists PHQ-2 (Physician [place]) Completed 07/23/2024 Meningococcal B Vaccine Aged Out No l onger eligible based on patient's age to complete this topic Meningococcal Vaccine Aged Out No noelle omayra eligible based on patient's age to complete this topic RSV Immunizations Under 20 Months Aged Out No longer eligible based on patient's age to complete this topic Procedures Procedure Name Priority Date/Time Associated Diagnosis Comments MG DIAG W LA RT DIGI Routine 07/07/2022 2:17 PM CDT Abnormal findings on diagnostic imaging of breast OCCULT BLOOD, FECES STAT 02/09/2022 2 :01 PM LIQU[employer] WASTE TREATMENT PLANT OPERATOR from Last 3 Months or Most Recently Relevant to Health Maintenance Results * MG DIAG W LA RT DIGI (07/07/2022 2:17 PM CDT) Anatomical Region Laterality Modality Breast Right Mammography 07/07/2022 2:10 PM CDT Narrative 07/07/2022 2:16 PM CDT IMAGING STUDIES: MG DIAG W LA RT DIGI DATE: 07/07/2022 1:21 PM HISTORY: abn findings . Abnormal screening mammogram COMPARISON: 06/15/2021. 06/18/2022 TISSUE TYPE: There are scattered areas of fibroglandular density. DISCUSSION: 1. Diagnostic right breast mammogram with computer-aided detection with 2-D and 3-D imaging and la synthesis.. 2. Previous identified lesion in the upper outer quadrant of the right breast is due to parenchymal overlap. No abnormality on spot compression images. 3. No malignant microcalcifications or architectural distortion. IMPRESSION: 1. No mammographic evidence of malignancy. 2. Assessment: ACR BI-RADS 2 - BENIGN FINDING(S) 3 .Routine Screening Bilateral MQSA BI-RADS Categories: Category 0 - needs additional imaging evaluation. Category 1 - negative. Category 2 - benign findings. Category 3 - probably benign findings, but short interval follow-up is recommended. Category 4 - suspicious abnormality and biopsy should be considered though the lesion may well be benign. Category 5 - highly suggestive of malignancy and appropriate action should be taken. A) A negative report should not delay a biopsy if a dominant or clinically suspicious mass is present. B) Adenosis and dense breasts may obscure an underlying neoplasm. C) Study interpreted with computer aided detection. Ordered By: BASIL CASTANEDA Interpreted By: Bryn Hawkins, 07/07/2022 2:10 PM Basil Castaneda PA MAMMO Final Result * (ABNORMAL) OCCULT BLOOD, FECES (02/09/2022 2:01 PM LIQUID WASTE TREATMENT PLANT OPERATOR) OCCULT BLOOD FECAL POSITIVE(A ) NEGATIVE 02/09/2022 2:09 PM LIQUID WASTE TREATMENT PLANT OPERATOR [facility] STOOL SPECIMEN / Unknown 02/09/2022 2:01 PM LIQUID WASTE TREATMENT PLANT OPERATOR Connie Coker MD BODY FLUIDS AND STOOLS OR DERABLES Final Result Performing Organization Address City/State/[facility] Co de Phone Number [facility] [address] [place] [address], [place] [phone] from Last 3 Months or Most Recently Relevant to Health Maintenance Insurance MEDICARE [facility] Advance Directives * Full Code (Latest Code Status on File) Date Activated Date Inactivated Comments 02/21/2022 10:50 AM 02/26/2022 8:10 PM Care Teams Orthodontist Assistant Relationship Specialty Start Date End Date Romulo Saucedo MD [address] [place] [address] PCP - General FAMILY PRACTICE 08/04/21
--- OUTSIDE RECORDS SUMMARY | 2024-08-23 10:08 | XMS_ITS | Encounter Summary ---
Author Organization [facility] Address [address] [place] [address] Care Team Providers Care Hotel Staff Member Name Role Phone Romulo Saucedo MD Primary Care Provider [phone] Encounter Details Date Type Department Care Team (Late st Contact Info) Description 05/24/[address] [facility] - [facility] [address] [facility], [address] [place] [phone] Blaire Mccurdy MD [address] [place] [id number] Social History Tobacco Use Types Packs/Day Years Used Date Smoking Tobacco: Never Passive Smoke Exposure: Never Smokeless Tobacco: Never Alcohol Use Standard Drinks/Week Comments Never 0 [...] Date Recorded Patient Health Questionnaire-2 Score 0 05/22/2024 Hunger Vital Sign Answer Date Recorded Within [...] place to sleep or slept in a long-term (including now)? 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 Answer Date of Assessment Author Status No 02/20/2022 10:00 PM Ashli Peterson RN Active * Do you have difficulty dressing or bathing? Answer Date of Assessment Author Status No 02/20/2022 10:00 PM Ashli Peterson RN Active * Because of a physical, mental, or emotional condition, do you have difficulty doing errands alone such as visiting a doctor's office or shopping? Answer Date of Assessment Author Status No 02/20/2022 10:00 PM Ashli Peterson RN Active documented as of this encounter Mental Status * Because of a physical, mental, or emotional condition, do you have serious difficulty concentrating, remembering, or making decisions? Answer Entry Date Author Status No 02/20/2022 10:00 PM Ashli Peterson RN Active documented in this encounter Plan of Treatment Upcoming Encounters Date Type Department Care Team (Late st Contact Info) Description 10/25/2024 9:00 AM CDT Office Visit [facility] - [address], [address] [phone] Blaire Mccurdy MD [address] [place] [phone] 11/15/2024 9:20 AM CDT Office Visit [facility] - [address], [address] [place] [address] Blaire Mccurdy MD [address] [place] [phone] documented as of this encounter Visit Diagnoses Not on filedocumented in this encounter Additional Health Concerns Assessment Noted Time PHQ-9 Depression Total Score: 0 10/27/19 24 9:57 AM CDT documented as of this encounter Care Teams Hotel Staff Member Relationship Specialty Start Date End Date Romulo Saucedo MD [address] [place] [address] PCP - General FAMILY PRACTICE 08/04/21 documented as of this encounter
--- OUTSIDE RECORDS SUMMARY | 2024-08-23 10:08 | XMS_ITS | Clinical Summary ---
Author Organization [facility] Address [address] [place] [address] Care Team Providers Care Refrigerating Technician Name Role Phone Romulo Saucedo MD Primary Care Provider [phone] Source Comments [facility],non-owned Affiliates and Associated Physician Practices is amultiple site organization consisting of ambulatory clinics and hospital sitesin [place], [place], [place] and [place]. This disclosure is being madepursuant to the Care Everywhere program and may not contain all information available regarding this patient. Last updated 17.[facility] Allergies Active Allergy Reactions Criticality Noted Date Comments Cefaclor Skin Reactions 08/07/2010 Clarithromycin Nausea and/or Vomiting 1 Clindamycin Other 02/09/2022 Codeine Nausea and/or Vomiting 08/07/2010 Compazine Syrup Other 08/07/2010 Can't walk/talk Hydrocodone Vomiting 02/09/2022 Reaction: Vomiting, Reaction: Vomiting, Latex Rash 08/07/2010 Procaine Palpitations Low 02/09/2022 Reaction: Palpitations, Reaction: Palpitations, Propoxyphene Nausea and/or Vomiting,Unknown 08/07/2010 Propoxyphene N-Apap Nausea and/or Vomiting 02/2010 Tramadol Nausea and/or Vomiting,Other 08/07/2010 jerking Medications * Be aware that medications may not be up to date on this document. Alwaysverify current medications with the patient. vitamin D, ergocalciferol, (DRISDOL) 64507 UNITS capsule Take 1 (one) capsule by mouth every 30 days Active TEMAZEPAM PO Active clomiPRAMINE (ANAFRANIL) 25 MG capsule Take 1 (one) capsule by mouth once daily Active albuterol HFA (Proventil; Ventolin; Proair) 108 (90 Base) MCG/ACT inhaler 2 Active busPIRone (Buspar) 10 MG tablet Take 1 (one) tablet by mouth once daily 2 Active colestipol (Colestid) 1 GM tablet TAKE 4 TABLETS (4 G TOTAL) BY MOUTH 2 (TWO) TIMES DAILY FOR 60 DAYS. 3 Active cyclobenzaprine (Flexeril) 10 MG tablet Take 1 (one) tablet by mouth 2 times daily as needed for muscle spasm 3 Active escitalopram (Lexapro) 20 MG tablet Take 1 (one) tablet by mouth once daily 3 Active gabapentin (Neurontin) 100 MG capsule Take gabapentin 100 mg 2 capsules in the morning, 2 capsules in the afternoon and 2 capsules at bedtime 3 Active Garlic (Odor Free Garlic) 100 MG Active levothyroxine (Synthroid) 75 MCG tablet Take 1 (one) tablet by mouth once daily 2 Active magnesium oxide (Mag-Ox) 400 MG tablet Take 1 (one) tablet by mouth once daily Active Multiple Vitamins-Minera ls (Multi Vitamin/Mineral s) TABS Take 1 (one) tablet by mouth once daily Active omeprazole (PriLOSEC) 40 MG capsule Take 1 (one) capsule by mouth once daily 3 Active ondansetron, disintegrating, (Zofran ODT) 4 MG tablet Take 1 (one) tablet by mouth every 8 hours as needed 3 Active primidone (Mysoline) 50 MG tablet Take 2 (two) tablets by mouth at bedtime 2 Active triamcinolone acetonide (Kenalog) 0.5 % cream 3 Active gabapentin (Neurontin) 400 MG capsule TAKE 1 CAPSULE BY MOUTH 1 & 1/2 TO 2 HOURS PRIOR TO BEDTIME AND REPEAT AT BEDTIME 2 Active fluticasone-amado meterol (Advair/Wixela) 100-50 MCG/ACT inhaler Inhale 1 (one) puff by mouth 2 times daily Active Active Problems Problem Noted Date Diagnosed Date Diarrhea due to malabsorption 02/20/2022 Overview (05/18/2022): Added automatically from request for surgery [id number] Enterocolitis 02/20/2022 Splenic artery aneurysm 07/23/2021 Overview (05/18/2022): Last Assessment & Plan: Patient following up status post CT a obtained for a known splenic artery aneurysm. CT a that was obtained on 08/20/2021 measures the splenic artery aneurysm at 1.5 x 1.3 cm. Remains unchanged from previous CT in 2019. Patient denies any current abdominal pain back pain or flank pain. Plan: Follow-up in 1 year with [facility] for routine surveillance. Last Assessment & Plan: Patient following up status post CT a obtained for a known splenic artery aneurysm. CT a that was obtained on 08/20/2021 measures the splenic artery aneurysm at 1.5 x 1.3 cm. Remains unchanged from previous CT in 2019. Patient denies any current abdominal pain back pain or flank pain. Plan: Follow-up in 1 year with [facility] for routine surveillance. Primary hypertension 07/23/2021 Overview (05/18/2022): Last Assessment & Plan: Hypertension chronic and controlled. Continue current medical therapy. Last Assessment & Plan: Hypertension chronic and controlled. Continue current medical therapy. Night muscle spasms 08/26/2020 Anxiety and depression 07/04/2019 Inactivity 07/04/2019 Age-related osteoporosis wit hout current pathological fracture 07/24/2015 Overview (05/18/2022): Ms. ORTEGA is being treated for osteoporosis [...] her baseline. She should continue calcium of 2952-9529 mg per day through dietary intake or supplements and vitamin D 50,000 IU weekly and I'll redose her IV Reclast now. Add more exercise. Ms. ORTEGA is being treated for osteoporosis [...] her baseline. She should continue calcium of 2349-4946 mg per day through dietary intake or supplements and vitamin D 50,000 IU weekly and I'll redose her IV Reclast now. Add more exercise. Disorder of initiating and maintaining sleep Gastroesophageal reflux disease 10/31/2014 Scoliosis 10/31/2014 Thyroid activity decreased 10/31/2014 Overview (05/18/2022): Last Assessment & Plan: Chronic and controlled. Continue Synthroid. Last Assessment & Plan: Chronic and controlled. Continue Synthroid. Vitamin D deficiency disease 05/03/2014 Dermatofibroma 10/11/2013 Skin lesion 12/06/2012 Abnormal weight gain 09/18/2012 Benign familial tremor 09/18/2012 Headache 09/18/2012 Folliculitis 06/06/2012 Pain in joint 05/16/2012 Vitamin B12 deficiency 05/16/2012 Pain of lower leg 01/20/2012 Open wound of left index finger without damage t o nail 12/15/2011 Right lower quadrant abdominal pain 02/12/2011 Other specified noninflammatory disorders of vag mikey 09/03/2010 Vaginal discharge 09/03/2010 Resolved Problems Problem Noted Date Diagnosed Date Resolved Date Acute sinusitis 04/23/2013 06/15/2022 Family History Medical History Relation Name Comments Heart Disease Father Status: Deceas ed None Known Maternal Grandmother Status: Relation Name Status Comments Father Maternal Grandmother Social History Tobacco Use Types Packs/Day Years Used Date Smoking Tobacco: Never Smokeless Tobacco: Never Tobacco Cessation:Counseling Given: Not Answered Alcohol Use Standard Drinks/Week Comments No 0 (1 standard drink = 0.6 oz pur e alcohol) Comments No Sex and Gender Information Value Date Recorded Sex Assigned at Female 05/06/2022 11:08 AM CDT Legal Sex Female 5:55 PM MANAGER OF FINANCIAL REPORTING Gender Identity Female 05/06/2022 11:08 AM CDT Sexual Orientation Not on file Last Filed Vital Signs Vital Sign Reading Time Taken Comments Blood Pressure 160/97 05/18/2022 8:40 AM CDT Pulse 84 05/18/2022 8:40 AM CDT Temperature 36.4 C (97.5 F) 05/18/2022 8:40 AM CDT Respiratory Rate 16 11/13/2017 11:30 AM CDT Oxygen Saturation 98% 05/18/2022 8:40 AM CDT Inhaled Oxygen Concentration - - Weight 66.2 kg (146 lb) 05/18/2022 8:40 AM CDT Height 157.5 cm (5' 2) 05/18/2022 8:40 AM CDT Body Mass Index 26.7 05/18/2022 8:40 AM CDT Plan of Treatment Health Maintenance Due Date Last Done Comments BONE DENSITY TESTING 1950 COLOGUARD (AGES 45-75) - COLON CA SCREENING 1950 COLON MONITORING 1950 COLONOSCOPY - COLON CA SCREENING 1951 CT COLONOGRAPHY - COLON CA SCREENING 1950 Colorectal Cancer Screening 1950 FIT - COLON CA SCREENING 1950 FLEX SIG - COLON CA SCREENING 1950 MAMMOGRAM 1950 MEDICARE AWV 12 MONTHS 1950 HEPATITIS C SCREENING 11/23/1969 DTAP/TDAP/TD VACCINES (1 - Tdap) 11/27/1970 PNEUMOCOCCAL VACCINE 50+ (1 of 1 - PCV) 11/27/2001 ZOSTER VACCINE (1 of 2) 11/27/2001 COVID-19 VACCINE (1 - season) 2023 DEPRESSION SCREENING 02/08/2024 INFLUENZA VACCINE (#1) 2024 SCREENING FOR DIABETES 05/07/2025 3, 05/07/2022, 05/07/2022, Additional history exists Respiratory Syncytial Virus (RSV) Vaccine Pt: or over 60 yrs (1 - 1-dose 75+ series) 11/27/2026 LIPID TESTING 05/08/2027 05/07/2022 HEPATITIS B VACCINE Aged Out No longe r eligible based on patient's age to complete this topic HIB VACCINE Aged Out No longer eligi ble based on patient's age to complete this topic HPV VACCINE Aged Out No longer eligi ble based on patient's age to complete this topic MENINGOCOCCAL (Group B) VACCINE SHARED DECISION-MAKING Aged Out No longer eligible based on patient's age to complete this topic MENINGOCOCCAL GROUPS A/C/Y/W VACCINE Aged Out No longer eligible based on patient's age to complete this topic Insurance MEDICARE MEDICARE [facility] MEDICARE MEDICARE [facility] MEDICARE [facility] MEDICARE [facility] MEDICARE MEDICARE MEDICARE MEDICARE MEDICARE MEDICARE [employer] [place] [employer] [employer] [place] [place] MED[place] MED[place] [place] MED[place] [place] [place] [place] [place] MEDICARE [facility] MEDICARE [employer] [place] [employer] [employer] [place] [employer] [place] MEDICARE [facility] [place] Care Teams Refrigerating Technician Relationship Specialty Start Date End Date Romulo Saucedo MD [address] [place] [address] PCP - General Family Medicine 11/13/17
--- OUTSIDE RECORDS SUMMARY | 2024-08-23 10:08 | XMS_ITS | Clinical Summary ---
Author Organization [facility] Address [address] [place] [address] [place] [address] Care Team Providers Care Branch Customer Service Representative Name Role Phone Romulo Saucedo MD Primary Care Provider [phone] Allergies Active Allergy Reactions Criticality Noted Date Comments Cefaclor Rash Low 04/28/2023 Cephalosporins Hives High 04/28/2023 Clarithromycin Diarrhea Low 04/28/2023 Clindamycin Nausea and Vomiting Low 04/28/2023 Codeine Diarrhea Low 04/28/2023 Dicyclomine Other (See Comments) 04/28/2023 Weakness Latex Rash Low 04/28/2023 Prochlorperazine Other (See Comments) Unable to walk or talk Tramadol Diarrhea Low 04/28/2023 Medications cholecalciferol 1,250 mcg (50,000 unit) Capsule Take by mouth. A ctive gabapentin (NEURONTIN) 400 mg capsule Take 400 mg by mouth 3 times daily. Active colestipoL (COLESTID) 1 gram tablet Take 1 Gram by mouth 2 times daily. Active albuterol (PROVENTIL,VENTOL IN) 0.63 mg/3 mL Solution for Nebulization Take 0.63 mg by inhalation one time only. Active MAGNESIUM OXIDE ORAL Take 400 mg by mouth. Active multivitamin (DAILY-SHAYY) tablet Take 1 Tablet by mouth daily. Active ascorbic acid (VITAMIN C) 250 mg Tablet, Chewable Take 250 mg by mouth. Active fluticasone propionate (FLONASE) 50 mcg/spray Marcellus, Suspension nasal inhaler Administer 2 Sprays in each nostril daily. Active escitalopram oxalate (LEXAPRO) 20 mg tablet Take 20 mg by mouth daily. Active omeprazole (PriLOSEC) 40 mg Capsule, Delayed Release(E.C.) Take 40 mg by mouth daily. Active primidone (MYSOLINE) 50 mg tablet Take 50 mg by mouth every 8 hours. Take 2 tablets three times daily. Active cyclobenzaprine (FLEXERIL) 10 mg tablet Take 10 mg by mouth 3 times daily as needed for Spasm. Active hydroCHLOROthiazi de 25 mg tablet Take 25 mg by mouth daily. Active busPIRone (BUSPAR) 10 mg tablet Take 10 mg by mouth 3 times daily. Active levothyroxine 75 mcg tablet Take 75 mcg by mouth daily in the morning. Active benzonatate (TESSALON) 200 mg capsule Take 200 mg by mouth 3 times daily. Active Active Problems No known active problems Encounters Date Type Department Care Team Description 08/21/2024 External Device Data [facility] ABSTRACTION Provider, Abstract 07/31/2024 External Device Data [facility] ABSTRACTION Provider, Abstract 07/24/2024 External Device Data [facility] ABSTRACTION Provider, Abstract 07/03/2024 External Device Data [facility] ABSTRACTION Provider, Abstract 06/28/2024 External Device Data [facility] ABSTRACTION Provider, Abstract 06/27/2024 External Device Data [facility] ABSTRACTION Provider, Abstract 06/26/2024 External Device Data [facility] ABSTRACTION Provider, Abstract from Last 3 Months Family History Medical History Relation Name Comments No Known Problems Brother No Known Problems Child Heart Disease Father No Known Problems Mother No Known Problems Sister Relation Name Status Comments Brother Alive Child Alive Father Mother Sister Alive Social History Tobacco Use Types Packs/Day Years Used Date Smoking Tobacco: Never Smokeless Tobacco: Never Tobacco Cessation:Counseling Given: Not Answered Alcohol Use Standard Drinks/Week Comments Not Currently 0 (1 standard drink = 0.6 oz pur e alcohol) Comments Unknown Sex and Gender Information Value Date Recorded Sex Assigned at Not on file Legal Sex Female 9:47 AM CDT Gender Identity Not on file Sexual Orientation Not on file Last Filed Vital Signs Vital Sign Reading Time Taken Comments Blood Pressure 117/76 02/16/2024 1:06 PM PUGGER HELPER Pulse 82 02/16/2024 1:06 PM PUGGER HELPER Temperature 37.1 C (98.8 F) 02/16/2024 1:06 PM PUGGER HELPER Respiratory Rate 16 02/16/2024 1:06 PM PUGGER HELPER Oxygen Saturation 94% 02/16/2024 1:06 PM PUGGER HELPER Inhaled Oxygen Concentration - - Weight 65.3 kg (144 lb) 02/16/2024 1:06 PM PUGGER HELPER Height 157.5 cm (5' 2) 04/28/2023 10:55 AM CDT Body Mass Index 26.34 04/28/2023 10:55 AM CDT Plan of Treatment Health Maintenance Due Date Last Done Comments DTAP/TDAP/TD VACCINES (1 - Tdap) 11/27/1970 BREAST CANCER SCREENING 1991 07/08/19 23, 06/18/2022, 06/18/2022, Additional history exists COLORECTAL SCREENING 11/27/1996 10/05/2021 Colorectal Cancer Screening 11/27/1996 FIT-DNA Q 3 years 11/27/1996 FIT/FOBT Q 1 year 11/27/1996 Flex Sig/CT Colonography Q 5 years 11/27/1996 PNEUMOCOCCAL VACCINE 50+ YEA RS (1 of 1 - PCV) 11/27/2001 ZOSTER VACCINE (1 of 2) 11/27/2001 OSTEOPOROSIS SCREENING 11/27/2016 , 12/23/2022, 12/03/2021, Additional history exists INFLUENZA VACCINE (#1) 2024 RSV VACCINE (60+ or ) (1 - 1-dose 75+ series) 11/27/2026 Insurance MEDICARE PART A [facility] [place] [address] Care Teams Branch Customer Service Representative Relationship Specialty Start Date End Date Romulo Saucedo MD [address] [facility] [address] [place] [address] PCP - General Family Practice 04/22/23
--- OUTSIDE RECORDS SUMMARY | 2024-08-23 10:09 | XMS_ITS | Encounter Summary ---
Author Organization [facility] Address [address] [place] [address] Care Team Providers Care Automatic Grinding Machine Operator Name Role Phone Romulo Saucedo MD Primary Care Provider [phone] Reason for Visit * Reason Comments Botox * Treatment/Therapy Plan Authorization (Routine) - Authorized Specialty Diagnoses / Procedures Referred By Elvira marie Referred To Contact Diagnoses Cervical dystonia Procedures INJECTION, ONABOTULINUMTOXINA, 1 UNIT Blaire Mccurdy MD [address] [place] [address] Phone: tel: fax: Blaire Mccurdy MD [address] [place] [address] Phone: tel: fax: Referral ID Status Reason Start Date Expiration Date V isits Requested Visits Authorized [id number] Authorized 05/24/2024 99 99 Encounter Details Date Type Department Care Team (Late st Contact Info) Description 08/23/2024 8:20 AM CDT Office Visit [facility] - [address], [address] [place] [address] Blaire Mccurdy MD [address] [place] [phone] Botox Social History Tobacco Use Types Packs/Day Years [...] PM CDT documented as of this encounter Last Filed Vital Signs Vital Sign Reading Time Taken Comments Blood Pressure 135/82 08/23/2024 8:33 AM CDT Pulse 81 08/23/2024 8:33 AM CDT Temperature - - Respiratory Rate - - Oxygen Saturation 99% 08/23/2024 8:33 AM CDT Inhaled Oxygen Concentration - - Weight 64 kg (141 lb) 08/23/2024 8:33 AM CDT Height - - Body Mass Index 25.79 11/09/2023 9:14 AM CDT documented in this encounter Functional Status * RETIRED Are you deaf or do you have serious difficulty hearing Answer Date of Assessment Author Status No 02/20/2022 10:00 PM SERVICES MGR Acti ve * RETIRED Are you blind or do you have serious difficulty seeing, even when wearing glasses? Answer Date of Assessment Author Status No 02/20/2022 10:00 PM SERVICES MGR Acti ve * Do you have serious difficulty walking or climbing stairs? Answer Date of Assessment Author Status No 02/20/2022 10:00 PM SERVICES MGR Ahsli Cruz RN Active * Do you have difficulty dressing or bathing? Answer Date of Assessment Author Status No 02/20/2022 10:00 PM Ashli Peterson RN Active * Because of a physical, mental, or emotional condition, do you have difficulty doing errands alone such as visiting a doctor's office or shopping? Answer Date of Assessment Author Status No 02/20/2022 10:00 PM Ashli Peterson RN Active * Over the past 2 weeks, how often have you been bothered by any of the following problems? Question Answer Date of Assessment Author Status Little interest or pleasure in doing things Not at all 08/23/2024 8:33 AM CDT Bindu Marie MA Act subhash Feeling down, depressed, or hopeless Not at all 08/23/2024 8:33 AM CDT Bindu Marie MA Active Patient Health Questionnaire-2 Score 0 08/23/2024 8:33 AM CDT Bindu Marie MA Active documented as of this encounter Mental Status * Because of a physical, mental, or emotional condition, do you have serious difficulty concentrating, remembering, or making decisions? Answer Entry Date Author Status No 02/20/2022 10:00 PM SERVICES MGR Ashli Cruz RN Active documented in this encounter Progress Notes * Blaire Mccurdy MD - 08/23/2024 8:20 AM CDT Cervical Dystonia Botox Botox treatment cycle number: 4 Botox side effect: none Medication effect lasted for: 25% reduction in symptoms, minimal improvement. Date of procedure: 08/23/2024 Lot type: buy and bill Wastage: 0 Botox Injection Procedure Informed consent: signed by patient. Confirmed: patient, procedure, safety procedures followed. Preparation: no contraindications noted to Botox, sterile preparation of site in usual fashion. Procedure tolerated: well. Complications: none. Indication : Cervical dystonia The patient was explained about the benefits and the possible side effects associated with Botox injections. The patient vocalized understanding and agreed to proceed with the injections. This is a patient with cervical dystonia. We did time out procedure and confirmed patient identity and procedure planned, including target of injection. After informed consent was obtained, using aseptic technique the following muscles were injected with botulinum toxin type A (BOTOX). Cervical Dystonia: Left sternocleidomastoid 50 units, Left trapezius 100 units, Left splenius capitus 25units, Left levator scapular 25 units A total of 200 units of botulinum toxin type A (BOTOX) were injected. The procedure was tolerated well without complication. Patient will return to clinic in three months' time for repeat injections. documented in this encounter Plan of Treatment Upcoming Encounters Date Type Department Care Team (Late st Contact Info) Description 10/25/2024 9:00 AM CDT Office Visit [facility] - [address] [place] [address] Blaire Mccurdy MD [address] [place] [address] 11/15/2024 9:20 AM CDT Office Visit [facility] - [facility] [address] [facility], [address] [place] [address] Blaire Mccurdy MD [address] [place] [address] Scheduled Orders Name Type Priority Associated Diagnoses Orde r Schedule CHEMODENERVATION MUSCLE NECK UNILAT FOR SYSTONIA Procedures Routine Cervical dystonia Ordered: 08/23/2024 documented as of this encounter Visit Diagnoses Diagnosis Cervical dystonia- Primary Spasmodic torticollis documented in this encounter Additional Health Concerns Assessment Noted Time PHQ-9 Depression Total Score: 0 10/27/19 24 9:57 AM CDT documented as of this encounter Care Teams Automatic Grinding Machine Operator Relationship Specialty Start Date End Date Romulo Saucedo MD [address] [place] [address] PCP - General FAMILY PRACTICE 08/04/21 documented as of this encounter
--- OUTSIDE RECORDS SUMMARY | 2024-08-23 10:09 | XMS_ITS | Encounter Summary ---
Author Organization [facility] Address [address] [place] [address] Care Team Providers Care Metal Pickling Equipment Operator Name Role Phone Romulo Saucedo MD Primary Care Provider [phone] Encounter Details Date Type Department Care Team (Latest Contact Info) Description 08/23/2024 Travel Social History Tobacco Use Types Packs/Day Years [...] money to buy more. Never true 02/20/19 Within the past 12 months, t he [...] place to sleep or slept in a fci (including now)? No 02/21/2022 Comments No Sex [...] Assessment Author Status No 02/20/2022 10:00 PM ENTERTAINMENT REPORTER Acti ve * RETIRED Are you blind or do you have serious difficulty seeing, even when wearing glasses? Answer Date of Assessment Author Status No 02/20/2022 10:00 PM ENTERTAINMENT REPORTER Acti ve * Do you have serious [...] at all 08/23/2024 8:33 AM CDT Bindu Mraie MA Active Patient Health Questionnaire-2 Score 0 [...] Date Type Department Care Team (Late st [facility] Info) Description 10/25/2024 9:00 AM CDT Office Visit [facility] - [address], [address] [place] [phone] Blaire Mccurdy MD [address] [place] [phone] 11/15/2024 9:20 AM CDT Office Visit [facility] - [address], [address] [place] [phone] Blaire Mccurdy MD [address] [place] [phone] documented as of this encounter Visit Diagnoses Not on filedocumented in this encounter Additional Health Concerns Assessment Noted Time PHQ-9 Depression Total Score: 0 10/27/19 24 9:57 AM CDT documented as of this encounter Care Teams Metal Pickling Equipment Operator Relationship Specialty Start Date End Date Romulo Saucedo MD [address] [place] [address] PCP - General FAMILY PRACTICE 08/04/21 documented as of this encounter
--- OUTSIDE RECORDS SUMMARY | 2024-08-23 10:10 | XMS_ITS | Clinical Summary ---
Author Organization [facility] 2 Address [address] [facility] [place] [address] Care Team Providers Care Maple Syrup Maker Name Role Phone Romulo Saucedo MD Primary Care Provider Geovanni Reeder MD Unavailable [phone] Allergies Active Allergy Reactions Criticality Noted Date Comments Cefaclor Hives High 08/07/2010 Other reaction(s): Skin Reactions Reaction: Hives, Clarithromycin Vomiting,Diarrhea,Na u sea And Vomiting 08/07/2010 Reaction: Vomiting, Diarrhea, Codeine Vomiting,Nausea And Vomiting 08/07/2010 Reaction: Vomiting, Hydrocodone Vomiting Reaction: Vomiting, Latex Rash Reaction: Rash, Procaine Palpitations Reaction: Palpitations, Prochlorperazine Other (See comments) Low 1 Can't walk/talk Reaction: Other, Propoxyphene Nausea And Vomiting 08/07/2010 Propoxyphene-Acetaminophe n Vomiting Reaction: Vomiting, Tramadol Vomiting,Nausea And Vomiting 08/07/2010 Other reaction(s): Other jerking Reaction: Vomiting, Medications levothyroxine (SYNTHROID, LEVOTHROID) 75 mcg tablet 8 Active omeprazole (PriLOSEC) 40 mg capsule 8 Active primidone (MYSOLINE) 50 mg tablet 8 Active escitalopram (LEXAPRO) 20 mg tablet 0 Active colestipoL (COLESTID) 1 gram tablet 8 tablets (8 g total) 0 Active busPIRone (BUSPAR) 10 mg tablet Take 1 tablet (10 mg total) by mouth 2 (two) times a day 0 Active cyclobenzaprine (FLEXERIL) 5 mg tablet TAKE 1 TABLET BY MOUTH 3 TIMES A DAY NEEDED FOR MUSCLE SPASMS 1 Active albuterol HFA (PROVENTIL HFA,VENTOLIN HFA,PROAIR HFA) 90 mcg/actuation inhaler 2 Active CALCIUM ORAL Take 1,200 mg by mouth daily Active ergocalciferol (VITAMIN D) 50,000 unit capsule Take 1 capsule (50,000 Units total) by mouth once a week Active magnesium oxide (MAG-OX) 400 mg (241.3 mg elemental magnesium) tabletIndicatio ns:hypomagnesem ia Take 1 tablet (400 mg total) by mouth daily Active fluticasone propion-salmete roL (ADVAIR DISKUS) 100-50 mcg/dose diskus inhaler Inhale 1 puff 2 (two) times a day Active benzonatate (TESSALON) 100 mg capsule 3 Active methylPREDNISol one (MEDROL DOSEPACK) 4 mg Dosepack 3 Active hydroCHLOROthia zide (HYDRODIURIL) 25 mg tablet 3 Active gabapentin (NEURONTIN) 100 mg capsuleIndicati ons:Essential Tremor,Restless Legs Syndrome Take gabapentin 100 mg 2 capsules in the morning, 2 capsules in the afternoon and 2 capsules at bedtime 540 capsule 4 4 Active gabapentin (NEURONTIN) 400 mg capsuleIndicati ons:Essential tremor,Psychoph ysiological insomnia TAKE 1 CAPSULE BY MOUTH 1 & 1/2 TO 2 HOURS PRIOR TO BEDTIME AND REPEAT AT BEDTIME 180 capsule 4 4 Active Active Problems Problem Noted Date Diagnosed Date Psychophysiological insomnia 08/19/2023 Diarrhea due to malabsorption 02/20/2022 Overview (09/09/2022): Added automatically from request for surgery [id number] Added automatically from request for surgery [id number] Enterocolitis 02/20/2022 09/09/2022 Splenic artery aneurysm 07/23/2021 Assessment & Plan (10/06/2023 2:18 PM CDT): Stable 1.5 cm splenic artery aneurysms. No indication for further workup and or intervention. Follow-up CT scan 2 years. Assessment & Plan (08/27/2021 1:33 PM CDT): Patient following up status post CT a obtained for a known splenic artery aneurysm. CT a that was obtained on 08/20/2021 measures the splenic artery aneurysm at 1.5 x 1.3 cm. Remains unchanged from previous CT in 2019. Patient denies any current abdominal pain back pain or flank pain. Plan: Follow-up in 1 year with CTA for routine surveillance. Assessment & Plan (07/23/2021 12:34 PM CDT): Known 1.3 cm splenic artery aneurysm 2019. No imaging performed since. Will obtain CT angiogram for more complete evaluation. Follow-up 2-3 weeks once that study is performed. Primary hypertension 07/23/2021 Assessment & Plan (10/06/2023 2:17 PM CDT): Hypertension chronic controlled. Continue current medical management. Assessment & Plan (07/23/2021 12:35 PM CDT): Hypertension chronic and controlled. Continue current medical therapy. Night muscle spasms 08/26/2020 Anxiety and depression 07/04/2019 Inactivity 07/04/2019 Essential tremor 01/03/2019 Assessment & Plan (08/19/2023 11:15 AM CDT): Good response to HIPOLITO, has been on for several year. Age-related osteoporosis wit hout current pathological fracture 07/24/2015 Overview (12/23/2022): Ms. ORTEGA is being treated for osteoporosis with calcium 500 mg twice a day and vitamin D 50,000 IU weekly and she received IV Reclast in 10/25 and in 12/29. Prior to that she received Prolia (denosumab) twice yearly for 4 injections (last one in 03/27) and 20 months of the Forteo therapy. Prior to Forteo she had Reclast once or twice. She's had no falls nor fractures. Assessment & Plan (01/19/2024 3:11 PM PHYSICAL SCIENCE TECHNICIAN): Ms. ORTEGA is currently being treated for osteoporosis with calcium and vitamin D and she's had extensive medication in the past including IV Reclast in 10/25 and 12/29. Prior to that she had Forteo (teriparatide) for 20 months followed by Prolia twice yearly (s/p 4 injections). Her bone density is stable in the spine and improved in the hip compared to last year. She should continue calcium of 2773-2711 mg per day through dietary intake or supplements and vitamin D 50,000 IU weekly and I'll hold off again on additional medication.. Assessment & Plan (12/23/2022 11:08 AM PHYSICAL SCIENCE TECHNICIAN): Ms. ORTEGA is currently being treated for osteoporosis with calcium and vitamin D and she's had extensive medication in the past including IV Reclast in 10/25 and 12/29. Prior to that she had Forteo (teriparatide) for 20 months followed by Prolia twice yearly (s/p 4 injections). Her bone density is stable in the spine and worsened in the hip compared to last year but overall improved significantly over her baseline. She should continue calcium of 4417-1099 mg per day through dietary intake or supplements and vitamin D 50,000 IU weekly and I'll hold off on additional medication for now. Assessment & Plan (12/03/2021 2:27 PM CDT): Ms. ORTEGA is currently being treated for [...] her baseline. She should continue calcium of 7446-2429 mg per day through dietary intake or supplements and vitamin D 50,000 IU weekly and I'll redose her IV Reclast now. Add more exercise. Assessment & Plan (11/20/2020 3:30 PM CDT): Ms. ORTEGA is currently being treated for osteoporosis with calcium and vitamin D and she's had extensive medication in the past including IV Reclast in 10/25. Prior to that she had Forteo (teriparatide) for 20 months followed by Prolia twice yearly (s/p 4 injections). Her bone density is stable compared to last year and is improved significantly over her baseline. For her treatment she should continue calcium of 5375-0415 mg per day through dietary intake or supplements and vitamin D 50,000 IU weekly and we'll hold off on additional therapy for now. Add more exercise. Assessment & Plan (11/08/2019 11:35 AM CDT): Ms. ORTEGA is currently being treated for osteoporosis with calcium and vitamin D and she's had extensive medication in the past including IV Reclast in 10/25. Prior to that she had Forteo (teriparatide) for 20 months followed by Prolia twice yearly (s/p 4 injections). Her bone density is stable compared to last year and is improved significantly over her baseline. Her bone markers remained suppressed last year. For her treatment she should continue calcium of 1704-5560 mg per day through dietary intake or supplements and vitamin D 50,000 IU weekly and we'll hold off on additional therapy for now. Assessment & Plan (10/12/2018 8:51 AM CDT): Ms. ORTEGA is currently being treated for osteoporosis with calcium and vitamin D and IV Reclast after Prolia twice yearly (s/p 4 injections) and Forteo (teriparatide) for 20 months. Her bone density has improved significantly over the past 11 years and is stable compared to last year. For her treatment she should continue calcium of 7234-2330 mg per day through dietary intake or supplements and vitamin D 50,000 IU weekly and we'll hold off on additional Reclast therapy unless her bone markers are elevated. Assessment & Plan (09/29/2017 11:32 AM CDT): In summary, Ms. ORTEGA is currently being treated for osteoporosis with calcium and vitamin D and Prolia twice yearly (s/p 4 injections) after completing Forteo (teriparatide) for 20 months. Her bone density has improved significantly over the past 10 years and is stable last year to this year. I recommend the following additional testin-OH vitamin D. For her treatment she should continue calcium of 9474-2478 mg per day through dietary intake or supplements and vitamin D 50,000 IU weekly and change to IV Reclast now. Gastroesophageal reflux disease 10/31/2014 Thyroid activity decreased 10/31/2014 Assessment & Plan (07/23/2021 12:34 PM CDT): Chronic and controlled. Continue Synthroid. Disorder of initiating and maintaining sleep Scoliosis 10/31/2014 Vitamin D deficiency disease 05/03/2014 Dermatofibroma 10/11/2013 09/09/2022 Acute sinusitis 04/23/2013 09/09/2022 Skin lesion 12/06/2012 09/09/2022 Abnormal weight gain 09/18/2012 09/09/2022 Headache 09/18/2012 09/09/2022 Folliculitis 06/06/2012 09/09/2022 Pain in joint 05/16/2012 09/09/2022 Vitamin B12 deficiency 05/16/2012 Pain in unspecified lower leg 01/20/2012 Open wound of left index finger without damage t o nail 12/15/2011 09/09/2022 Right lower quadrant abdominal pain 02/12/2011 Vaginal discharge 12/08/2010 Other specified noninflammatory disorders of vag mikey 09/03/2010 Encounters Date Type Department Care Team Description 07/26/2024 Orders Only [facility] Vascular and Vein Surgery [address] [facility] [address] [place] [phone] Rach Buck MA 07/26/2024 Orders Only [facility] Vascular and Vein Surgery [address] [facility] [address] [place] [address] Geovanni Reeder MD Splenic artery aneurysm 07/26/2024 Orders Only [facility] Vascular and Vein Surgery [address] [facility] [address] [place] [address] Geovanni Reeder MD Splenic artery aneurysm from Last 3 Months Surgical History Surgery Date Site/Laterality Comments [place] DELIVERY ONLY Section - (Added by TW Conv) SECTION October 12, 1990 CHOLECYSTECTOMY 10/09/2019 - 11/07/2019 ABDOMINAL SURGERY Large mass. December 2010 Medical History Medical History Date Comments Personal history of arthritis Ar thritis - (Added by TW Conv) Gastric ulcer without hemorr geoffrey or perforation Gastric ulcer - (Added by TW Conv) Personal history of other en docrine, nutritional and metabolic disease History of thyroid d isease - (Added by TW Conv) Personal history of healed t raumatic fracture History of fracture of ankle - age 48 with trauma (Added by TW Conv) Personal history of healed t raumatic fracture History of fracture of foot - and toe fracture at age 15 with trauma (Added by TW Conv) Follicular cyst of skin and subcutaneous tissue Scalp cyst - (Added by TW Co nv) GERD (gastroesophageal reflux disease) 10 year a go Anxiety May 2019 Arthritis 10 years ago Asthma 2018 Osteoporosis 20 years Brain concussion June 2008 Depression 2009 Hypertension November 2018 Thyroid disease 10 years Family History Medical History Relation Name Comments Depression Father Fahad Heart attack Father Fahad Heart disease Father's Brother Peter Alzheimer's disease Mother [place] Arthritis Mother [place] Hypertension Mother [place] Asthma Son Danilo Broken bones Neg Hx Hip fracture Neg Hx Kyphosis Neg Hx Osteoporosis Neg Hx Scoliosis Neg Hx Relation Name Status Comments Father Fahad Father's Brother Peter Mother [place] Son Danilo Social History Tobacco Use Types Packs/Day Years Used Date Smoking Tobacco: Never Smokeless Tobacco: Never Tobacco Cessation:Counseling Given: Not Answered Comments Unknown Sex and Gender Information Value Date Recorded Sex Assigned at Not on file Legal Sex Female 2:53 AM PHYSICAL SCIENCE TECHNICIAN Gender Identity Female 11/03/2017 3:02 PM CDT Sexual Orientation Not on file Obstetrics History Last Filed Vital Signs Vital Sign Reading Time Taken Comments Blood Pressure 122/76 09/22/2023 10:10 AM CDT Pulse 88 09/22/2023 10:10 AM CDT Temperature 36.4 C (97.6 F) 08/19/2023 10:17 AM CDT Respiratory Rate 18 08/19/2023 10:17 AM CDT Oxygen Saturation 97% 08/19/2023 10:17 AM CDT Inhaled Oxygen Concentration - - Weight 65.6 kg (144 lb 9.6 oz) 01/19/2024 2:44 P M PHYSICAL SCIENCE TECHNICIAN Height 158.1 cm (5' 2.25) 01/19/2024 2:44 PM CS T Body Mass Index 26.24 01/19/2024 2:44 PM PHYSICAL SCIENCE TECHNICIAN Plan of Treatment Health Maintenance Due Date Last Done Comments Colon Cancer Screening-Colonoscopy 1950 Depression Screening 1950 Fall Risk Assessment 1950 Hepatitis C Screening 1950 DTaP/Tdap/Td Vaccine (1 - Tdap) 11/27/1962 Hepatitis B Screening 11/27/1969 Pneumococcal vaccine 65+ (1 of 1 - PCV) 11/27/2001 Zoster Vaccine (1 of 2) 11/27/2001 Well Visit 65+ 11/27/2016 Breast Cancer Screening-Mammogram 06/19/2023 023, 06/15/2021 Influenza Vaccine (#1) 2024 Osteoporosis Screening-Bone Density Scan 01/18/2026 01/19/2024, 12/23/2022, 12/03/2021, Additional history exists Procedures Procedure Name Priority Date/Time Associated Diagnosis Comments DEXA TBS AXIAL SKELETON BONE DENSITY 1 OR MORE SITES Schedule Routine, Read Routine (OP Routine) 01/19/2024 2:43 PM PHYSICAL SCIENCE TECHNICIAN Age-related osteoporosis without current pathological fracture from Last 3 Months or Most Recently Relevant to Health Maintenance Results * Dexa TBS Axial Skeleton Bone Density 1 or more sites (01/19/2024 2:43 PM PHYSICAL SCIENCE TECHNICIAN) Anatomical Region Laterality Modality Wrist, Body N/A Radiographic Elvira ging Narrative 01/23/2024 2:26 AM PHYSICAL SCIENCE TECHNICIAN Patient Name: Asuncion Maradiaga Aroldo Date of : 1950 Date of scan: 01/19/2024 Bone mineral density was performed on a [employer] Discovery Densitometer. Based on machine cross-calibration and precision studies the least significant changes of this densitometer is 0.024 g/cm2 at the spine, 0.020 g/cm2 at the total proximal femur, and 0.014g/cm2 at the forearm. HISTORY: This is a 73 y.o. postmenopausal female with a history of asthma, osteoporosis, thyroid disease, and vitamin D deficiency. She reports that she has never smoked. She has never used smokeless tobacco. Currently on treatment with calcium, vitamin D, thyroid hormone, and diuretics, previously treated with risedronate (Actonel), zoledronic acid (Reclast), teriparatide (Forteo), and denosumab (Prolia), and current complaint of arm pain, back pain, and neck pain. INDICATIONS: Menopause status, vitamin D deficiency, and history of osteoporosis. FINDINGS: BONE MINERAL DENSITY OF THE LUMBAR SPINE Bone Mineral Density (BMD) of the lumbar spine was measured from L1-L4 and the average density was calculated to be 0.841 gm/cm2. This corresponds to a T-score (standard deviations from the mean of young adults) of -1.9. When compared to the previous study of 12/23/2022 there has been no significant changes in bone density. BONE MINERAL DENSITY OF THE PROXIMAL FEMUR Bone Mineral Density (BMD) of the left hip total was found to be 0.796 gm/cm2. This corresponds to a T-score standard deviations from the mean of young adults of -1.2. Femoral neck is 0.610 gm/cm2 with a T-score (standard deviations from the mean of young adults) of -2.2. When compared to the previous study of 12/23/2022 there has been a 0.020 gm/cm (2.6%) increase in bone density that is considered significant. SUMMARY: Bone mineral density shows evidence of low bone mass at the lumbar spine and proximal femur and moderately increased fracture risk (Osteopenia). There has been a significant increase in bone density since previous measurement. Please note there is an internal artifact that is unable to be removed in the lumbar spine scan. ADDITIONAL COMMENTS: Postmenopausal Women and Men Over 50: Diagnostic criteria: Osteoporosis: BMD at or below -2.5 T-score; Osteopenia (low bone mass): BMD between -1.0 and -2.5 T-score. If the patient has a history of a fragility fracture, a fracture that occurred with trauma equivalent to a fall from a standing position or less, then the diagnosis is osteoporosis regardless of bone density. The history and data sections of the bone mineral density scan were prepared by Mariama Sellers) JOSE who is accredited by the International Society of Clinical Densitometry. The overall patient assessment and scan interpretation were performed by Sharlene Landry M.D. who is certified by the International Society of Clinical Densitometry. [id number] Sharlene Landry MD IMG DXA PROCEDURES Final Re sult from Last 3 Months or Most Recently Relevant to Health Maintenance Insurance MEDICARE [facility] Address: [id number] [place] [address] [facility] [place] [address] MEDICARE MEDICARE [facility] Care Teams Maple Syrup Maker Relationship Specialty Start Date End Date Romulo Saucedo MD [address] [place] [address] [address] [place] [address] PCP - General 07/29/16 Geovanni Reeder MD [address] [facility] [address] [facility] [address] [place] [address] Surgeon Vascular Surgery 08/21/21
--- OUTSIDE RECORDS SUMMARY | 2024-08-23 10:10 | XMS_ITS | Encounter Summary ---
Author Organization [facility] Address [address] [place] [address] Care Team Providers Care Worksite Wellness Practitioner Name Role Phone Romulo Saucedo MD Primary Care Provider [phone] Encounter Details Date Type Department Care Team (Late st Contact Info) Description 08/21/2024 External Device Data [facility] ABSTRACTION Provider, Abstract NO ADDRESS ON FILE Social History Tobacco Use Types Packs/Day Years Used Date Smoking Tobacco: Never Smokeless Tobacco: Never Alcohol Use Standard Drinks/Week Comments Not Currently 0 (1 standard drink = 0.6 oz pur e alcohol) Comments Unknown Sex and Gender Information Value Date Recorded Sex Assigned at Not on file Legal Sex Female 9:47 AM CDT Gender Identity Not on file Sexual Orientation Not on file documented as of this encounter Plan of Treatment Not on file documented as of this encounter Visit Diagnoses Not on filedocumented in this encounter Care Teams Worksite Wellness Practitioner Relationship Specialty Start Date End Date Romulo Saucedo MD [address] [facility] [address] [place] [address] PCP - General Family Practice 04/22/23 documented as of this encounter
--- OUTSIDE RECORDS SUMMARY | 2024-08-23 10:10 | XMS_ITS | Referral Summary ---
Author Organization [facility] 2 Address [address] [facility] [place] [address] Care Team Providers Care Revenue Cycle Analyst Name Role Phone Romulo Saucedo MD Primary Care Provider Geovanni Reeder MD Unavailable [phone] Encounters Date Type Department Care Team Description 07/26/2024 Orders Only [facility] Medical Group Vascular and Vein Surgery [address] [place] [address] [place] [phone] Rach Buck MA 07/26/2024 Orders Only [facility] Group Vascular and Vein Surgery [address] [place] [address] [place] [phone] Geovanni Reeder MD Splenic artery aneurysm 07/26/2024 Orders Only [facility] Vascular and Vein Surgery [address] [place] [address] [address] [place] [address] Geovanni Reeder MD Splenic artery aneurysm from Last 3 Months Allergies Active Allergy Reactions Criticality Noted Date [...] (09/09/2022): Added automatically from request for surgery [id number] Added automatically from request for surgery [id number] Enterocolitis 02/20/2022 09/09/2022 Splenic artery aneurysm 07/23/2021 [...] fractures. Assessment & Plan (01/19/2024 3:11 PM CHIP UNLOADER): Ms. ORTEGA is currently being treated for [...] last year. She should continue calcium of 7701-1026 mg per day through dietary intake or supplements and vitamin D 50,000 IU weekly and I'll hold off again on additional medication.. Assessment & Plan (12/23/2022 11:08 AM CHIP UNLOADER): Ms. ORTEGA is currently being treated for [...] her baseline. She should continue calcium of 6381-1708 mg per day through dietary intake or [...] her baseline. She should continue calcium of 2920-0841 mg per day through dietary intake or [...] her treatment she should continue calcium of 0778-0679 mg per day through dietary intake or [...] her treatment she should continue calcium of 6803-2258 mg per day through dietary intake or [...] her treatment she should continue calcium of 4530-5417 mg per day through dietary intake or [...] her treatment she should continue calcium of 4734-4979 mg per day through dietary intake or [...] specified noninflammatory disorders of vag mikey 09/03/2010 Social History Tobacco Use Types Packs/Day Years Used Date Smoking Tobacco: Never Smokeless Tobacco: Never Tobacco Cessation:Counseling Given: Not Answered Comments Unknown Sex and Gender Information Value Date Recorded Sex Assigned at Not on file Legal Sex Female 2:53 AM CHIP UNLOADER Gender Identity Female 11/03/2017 3:02 PM CDT Sexual Orientation Not on file Last [...] lb 9.6 oz) 01/19/2024 2:44 P M CHIP UNLOADER Height 158.1 cm (5' 2.25) 01/19/2024 2:44 PM CS T Body Mass Index 26.24 01/19/2024 2:44 PM CHIP UNLOADER Plan of Treatment Not on file Procedures Procedure Name Priority Date/Time Associated Diagnosis Comments DEXA TBS AXIAL SKELETON BONE DENSITY 1 OR MORE SITES Schedule Routine, Read Routine (OP Routine) 01/19/2024 2:43 PM CHIP UNLOADER Age-related osteoporosis without current pathological fracture from Last 3 Months or Most Recently Relevant to Health Maintenance Results * Dexa TBS Axial Skeleton Bone Density 1 or more sites (01/19/2024 2:43 PM CHIP UNLOADER) Anatomical Region Laterality Modality Wrist, Body N/A Radiographic Elvira ging Narrative 01/23/2024 2:26 AM CHIP UNLOADER Patient Name: Asuncion Kendrick Date of : 1950 Date of scan: 01/19/2024 Bone mineral density was performed on a [employer] Discovery Densitometer. Based on machine cross-calibration and [...] by the International Society of Clinical Densitometry. [id number] Sharlene Landry MD IMG DXA PROCEDURES Final Re sult from Last 3 Months or Most Recently Relevant to Health Maintenance Insurance MEDICARE [facility] [place] [address] MEDICARE MEDICARE [employer] Care Teams Revenue Cycle Analyst Relationship Specialty Start Date End Date Romulo Saucedo MD [address] [place] [address] [place], [place] [phone] PCP - General 07/29/16 Geovanni Reeder MD [address] [facility] [place] [address] [email or web address] [address] [place] [address] Surgeon Vascular Surgery 08/21/21
--- OUTSIDE RECORDS SUMMARY | 2024-08-23 10:10 | XMS_ITS | Encounter Summary ---
Author Organization [facility] Address [address] [place] [address] Phone Care Team Providers Care Forest Fire Fighter Name Role Phone Romulo Saucedo MD Primary Care Provider Geovanni Reeder MD Unavailable [phone] Encounter Details Date Type Department Care Team (Late st Contact Info) Description 12/10/2021 Treatment [facility] [address] [facility] [address] [place] [address] Sharlene Landry MD [address] [place] [address] [address] [place] [address] Social History Tobacco Use Types Packs/Day Years Used Date Smoking Tobacco: Never Smokeless Tobacco: Never Comments Unknown Sex and Gender Information Value Date Recorded Sex Assigned at Not on file Legal Sex Female 2:53 AM IRONER MACHINE Gender Identity Female 11/03/2017 3:02 PM CDT Sexual Orientation Not on file documented as of this encounter Plan of Treatment Not on file documented as of this encounter Visit Diagnoses Not on filedocumented in this encounter Care Teams Forest Fire Fighter Relationship Specialty Start Date End Date Romulo Saucedo MD [address] [facility] [address] [place] [address] PCP - General 07/29/16 Geovanni Reeder MD [address] [facility] [address] [facility] [address] [place] [address] Surgeon Vascular Surgery 08/21/21 documented as of this encounter
--- NOTE | 2024-08-23 10:28 | ED.FALL ---
HPI - Fall General Chief Complaint: Fall Stated Complaint: L rib pain after a fall over the weekend Time Seen by Provider: 08/23/24 10:18 Source: patient Mode of arrival: ambulatory Limitations: no limitations History of Present Illness HPI Narrative: Patient is a 73-year-old female who presents the ED with report left rib/back pain. Patient reports she fell over the weekend and landed onto her left side. She sustained injury to her left elbow, left upper back, left ribs, right hip. Complains of pain to these regions. She did not hit her head or lose consciousness. Denies any dizziness, lightheadedness, prodromal symptoms. She has been taking Tylenol/ibuprofen over the weekend, but states pain has not been improving. She reports pain with deep breath, movements, denies feeling short of breath. Denies any numbness or tingling. Denies abdominal pain, N/V. Patient is not on any anticoagulation. Related Data Home Medications ?Medication ?Instructions ?Recorded ?Confirmed ?Last Taken ?Type cholecalciferol (vitamin D3) 1,250 50,000 unit PO WEEKLY 01/18/19 08/02/24 10/08/19 History mcg (50,000 unit) capsule gabapentin 400 mg capsule 800 mg PO HS 10/10/19 08/02/24 10/04/21 History garlic 1 tab-cap PO DAILY 09/23/21 08/02/24 Unknown History magnesium 100 mg capsule 400 mg PO DAILY 09/23/21 08/02/24 Unknown History hynkkvdyhmnk-Ut-wisa-minerals 1 tablet PO DAILY 09/23/21 08/02/24 Unknown History vit C 250 mg-vit E 90 mg-zinc 40 1 tablet PO DAILY 09/23/21 08/02/24 Unknown History mg-copper 1 ao-ihroue-xozbvn capsule (PreserVision AREDS-2) fluticasone 100 mcg-salmeterol 50 1 inh inhalation Q12H 04/14/22 08/02/24 Unknown History mcg/dose blistr powdr for inhalation (Advair Diskus) Allergies Allergy/AdvReac Type Severity Reaction Status Date / Time codeine Allergy Severe N/V/D Verified 08/02/24 07:49 dicyclomine Allergy Severe Weakness Verified 08/02/24 07:49 prochlorperazine Allergy Severe COULDN'T Verified 08/02/24 07:49 WALK/TALK cefaclor Allergy Intermediate Hives Verified 08/02/24 07:49 Cephalosporins Allergy Intermediate HIVES Verified 08/02/24 07:49 clarithromycin Allergy Mild N/V/D Verified 08/02/24 07:49 latex Allergy Rash Verified 08/02/24 07:49 clindamycin AdvReac Severe Gastrointestinal Verified 08/02/24 07:49 Upset tramadol AdvReac Severe N/V/D Verified 08/02/24 07:49 olmesartan AdvReac Intermediate Vomiting Verified 08/02/24 07:49 lisinopril AdvReac Mild cough Verified 08/02/24 07:49 Local Anesthetics W/ EPI Allergy Severe SHAKINESS, Uncoded 08/02/24 07:49 PALPITATIONS NOVACAINE Allergy Severe SHAKINESS/P Uncoded 08/02/24 07:49 ALPITATIONS Review of Systems Review of Systems: All systems reviewed & are unremarkable except as noted in HPI. All systems reviewed & are unremarkable except as noted in HPI and below PMFSH Past Medical History Medical History BMI 25.0-25.9,adult Asthma Mitral valve prolapse Splenic artery aneurysm HTN (hypertension) Age related osteoporosis Depression EREN (generalized anxiety disorder) Hyperlipidemia Hypothyroidism, unspecified Major depression, chronic Surgical History Surgical History Hx laparoscopic cholecystectomy 10/17/2019 History of removal of cyst History of section Family History Family History Mother Family history of Alzheimer's disease Hypertension Father Acute myocardial infarction Other Asthma Social History Social History Social History: Smoking status: Never smoker Second hand tobacco smoke exposure: No Alcohol intake: never Substance use: never Substance use type: does not use Lack of Transportation: No Lack of Food: Never True Current Housing: I Have Housing Concerned About Future Housing: No Difficulty Paying Gas/Electric Bills: No Difficulty Paying for Meds: No Currently Unemployed: No Education: Master's Degree or Higher Difficulty w/ Childcare or Family Care: No Living arrangements: with family Occupation/Education: occupation Gender identity (if verbalized by the patient): Female Sexual Orientation (if Verbalized by the Patient): Straight or Heterosexual Spiritual care concerns: No Exam Narrative: GENERAL: Well appearing, well-nourished, non-toxic, in no acute distress. HEAD: Normocephalic, atraumatic. NECK: No midline spinal tenderness. Normal ROM RESPIRATORY: Airway patent, respirations nonlabored. Clear to auscultation bilaterally, no rales, rhonchi, wheezing. CARDIOVASCULAR: Regular rate and rhythm without murmurs, rubs, or gallops. ABDOMINAL: Soft, no tenderness throughout abdomen, nondistended. Normoactive BS. MUSCULOSKELETAL: Moves all extremities. TTP over L anterior/upper chest wall. TTP and large area of bruising over L upper back, just below scapular region. No palpable bony deformities. No tenderness throughout midline T/L-spine. Mild tenderness palpation of right lateral hip joint. Sensation intact throughout extremities. SKIN: Warm, dry, normal color. NEURO: A&O X3. Speech clear. Cranial nerves II-XII grossly intact. Steady gait. No ataxic movements. PSYCHIATRIC: Appropriate mood and affect. Normal interaction. Course Vital Signs Vital signs: Vital Signs Temperature 98.1 F 08/23/24 10:08 Pulse Rate 81 08/23/24 10:08 Respiratory Rate 16 08/23/24 10:08 Blood Pressure 137/72 08/23/24 10:08 Pulse Oximetry 97 08/23/24 10:08 Oxygen Delivery Room Air 08/23/24 10:08 Temperature 97.9 F 08/23/24 12:30 Pulse Rate 78 08/23/24 12:30 Respiratory Rate 16 08/23/24 12:30 Blood Pressure 122/68 08/23/24 12:30 Pulse Oximetry 98 08/23/24 12:30 Oxygen Delivery Room Air 08/23/24 10:08 MDM - Fall MDM Narrative Medical decision making narrative: Patient presented to ED status post ground level mechanical fall over the weekend with pain to left ribs, left upper back, right hip. Denies any head injury or LOC. Vital signs are stable upon arrival. Patient is denying shortness of breath. Oxygen stable on room air. X-ray of right hip/pelvis negative. X-ray left elbow negative. CT chest obtained and unremarkable. No rib fractures or other cardiopulmonary abnormalities. Does show liver hypodensity. Per records, patient has had numerous imaging studies in the past which have demonstrated stable liver cysts. Discussed imaging findings, overall reassuring workup with patient. Advised no actual rib fractures, but will treat similarly. Will prescribe lidocaine patches, [place] for pain control. Patient reports nausea with pain medication. Will prescribe Zofran. Was also educated on incentive spirometry use. Advised close follow-up with primary care doctor for further evaluation. Given strict return precautions. She is in agreement with plan. Discharged in stable condition. Medical Records Attestation: I reviewed the patient's medical records. Imaging Data Attestation: I personally reviewed and interpreted this imaging study as follows: Radiologist's impression: ITS Impressions Elbow X-Ray 08/23/24 11:18 Impression: Unremarkable radiographs. Hip/Pelvis X-Ray 08/23/24 11:18 Impression: No significant abnormality is seen. Chest CT 08/23/24 11:35 IMPRESSION: 1. No acute cardiopulmonary pathology. 2. Sliding hiatus hernia. 3. Hypodensity in the left lower the liver. Ultrasound evaluation advised. 4. Calcified aneurysm in the hilum of the spleen unchanged. Discharge Plan Discharge Clinical Impression: Contusion of left back wall of thorax Qualifiers: Encounter type: initial encounter Qualified Code(s): S20.222A - Contusion of left back wall of thorax, initial encounter Strain of left elbow Qualifiers: Encounter type: initial encounter Qualified Code(s): S56.912A - Strain of unspecified muscles, fascia and tendons at forearm level, left arm, initial encounter Strain of right hip Qualifiers: Encounter type: initial encounter Qualified Code(s): S76.011A - Strain of muscle, fascia and tendon of right hip, initial encounter Patient Disposition: Home Condition: Stable Instructions: Antibiotic Form, Chest Wall Pain (ED), Rib Contusion (ED), Elbow Strain (ED), Chest Contusion (ED) Additional Instructions: Utilize incentive spirometer several times throughout the day to encourage deep breathing. Continue Tylenol and Ibuprofen as needed for pain. You may use ice, lidocaine patches to area of pain. Utilize [place] as needed for more severe pain. Use Zofran as needed for nausea with pain medication. Do not drive, operate heavy machinery, drink alcohol while on pain medication as this may cause further sedation. Follow-up with your primary care doctor for further evaluation. Return to the ED if you experience worsening or severe pain, recurrent injury, difficulty breathing, numbness in arms or legs, unable to keep down food or drink, or any other symptoms of concern. Patient Language: Belarusian Prescriptions: New hydrocodone-acetaminophen 5-325 mg tablet 1 tablet PO Q6H PRN (Reason: pain) Qty: 15 0RF lidocaine 5 % adhesive patch,medicated 1 patch topical DAILY Qty: 15 0RF Rx Instructions: leave on most painful area for up to 12 hrs ondansetron 4 mg tablet,disintegrating 4 mg PO Q8H PRN (Reason: nausea and vomiting) Qty: 15 0RF No Action cholecalciferol (vitamin D3) 50,000 unit capsule 50,000 unit PO WEEKLY fluticasone propion-salmeterol [Advair Diskus] 100-50 mcg/dose blister with device 1 inh inhalation Q12H atorvastatin [Lipitor] 10 mg tablet 10 mg PO QHS Qty: 90 1RF gabapentin 400 mg capsule 800 mg PO HS magnesium 100 mg Capsule 400 mg PO DAILY Multiple Vitamin, Womens Tablet 1 tablet PO DAILY PreserVision AREDS-2 250-90-40-1 mg Capsule 1 tablet PO DAILY garlic 1 tab-cap PO DAILY cyclobenzaprine 10 mg tablet See Rx Instructions .ROUTE .COMPLEX Qty: 180 3RF Dose Instruction: TAKE 1 TABLET TWICE A DAY NEEDED FOR MUSCLE SPASM Rx Instructions: TAKE 1 TABLET TWICE A DAY NEEDED FOR MUSCLE SPASM albuterol sulfate 90 mcg/actuation HFA aerosol inhaler See Rx Instructions .ROUTE .COMPLEX Qty: 8.5 0RF Dose Instruction: USE 1 INHALATION EVERY 4 HOURS NEEDED FOR SHORTNESS OF BREATH OR WHEEZING Rx Instructions: USE 1 INHALATION EVERY 4 HOURS NEEDED FOR SHORTNESS OF BREATH OR WHEEZING primidone 50 mg tablet See Rx Instructions .ROUTE .COMPLEX Qty: 240 1RF Dose Instruction: TAKE 2 TABLETS BY MOUTH AT BEDTIME Rx Instructions: take 1 tablet in the morning, 1 tablet in the afternoon, and 2 tablets at bedtime triamcinolone acetonide 0.1 % cream 1 applic topical BID PRN (Reason: rash) Qty: 15 2RF Rx Instructions: Apply to affected area as needed for no more than 1-2 weeks levothyroxine 75 mcg tablet 75 mcg PO DAILY Qty: 90 2RF colestipol 1 gram tablet 3 g PO DAILY Qty: 270 1RF Rx Instructions: swallow whole tab w/any liquid;do not crush/chew/cut;administer other meds 1hr before/4hr after taking dose escitalopram oxalate [Lexapro] 20 mg tablet 20 mg PO DAILY Qty: 90 3RF omeprazole 40 mg capsule,delayed release(DR/EC) 40 mg PO DAILY Qty: 90 3RF hydrochlorothiazide 25 mg tablet See Rx Instructions .ROUTE .COMPLEX Qty: 90 3RF Dose Instruction: TAKE 1 TABLET DAILY Rx Instructions: TAKE 1 TABLET DAILY buspirone 10 mg tablet 10 mg PO TID Qty: 270 1RF Follow-up/Referrals: Romulo Saucedo MD [Primary Care Provider] - Time of Disposition: 12:32
[2024-08-23 10:30] VITALS: BP 129/76; PULSE 78; RESP 16; O2SAT 95
[2024-08-23 11:16] VITALS: BP 130/73; PULSE 76; RESP 16; TEMP 36.6; O2SAT 94
[2024-08-23] MEDS: LIDOCAINE 5% PATCH 1 PATCH TRANSDERM (11:22)
[2024-08-23 11:31] VITALS: BP 126/77; PULSE 74; RESP 16; O2SAT 96
--- OUTSIDE RECORDS SUMMARY | 2024-08-23 11:31 | XMS_ITS | Encounter Summary ---
Author Organization [facility] Address [address] [place] [address] Care Team Providers Care Capacity Planning Engineer Name Role Phone Romulo Saucedo MD Primary Care Provider [phone] Encounter Details Date Type Department Care Team [...] on filedocumented in this encounter Care Teams Capacity Planning Engineer Relationship Specialty Start Date End Date Romulo Saucedo MD [address] [facility] [address] [place] [address] PCP - General Family Practice 04/22/23 documented as of this encounter
--- OUTSIDE RECORDS SUMMARY | 2024-08-23 11:31 | XMS_ITS | Clinical Summary ---
[facility] Organization [facility] Address [address] [place] [address] [place] [address] Care Team Providers Care Senior Project Controls Specialist Name Role Phone Romulo Saucedo MD Primary Care Provider [phone] Allergies Active Allergy Reactions Criticality Noted Date [...] mouth. Active fluticasone propionate (FLONASE) 50 mcg/spray [place], Suspension nasal inhaler Administer 2 Sprays in [...] Comments Blood Pressure 117/76 02/16/2024 1:06 PM INHALATION THERAPY AIDE Pulse 82 02/16/2024 1:06 PM INHALATION THERAPY AIDE Temperature 37.1 C (98.8 F) 02/16/2024 1:06 PM INHALATION THERAPY AIDE Respiratory Rate 16 02/16/2024 1:06 PM INHALATION THERAPY AIDE Oxygen Saturation 94% 02/16/2024 1:06 PM INHALATION THERAPY AIDE Inhaled Oxygen Concentration - - Weight 65.3 kg (144 lb) 02/16/2024 1:06 PM INHALATION THERAPY AIDE Height 157.5 cm (5' 2) 04/28/2023 10:55 [...] 11/27/2026 Insurance MEDICARE PART A AND B [facility] [place] [address] Care Teams Senior Project Controls Specialist Relationship Specialty Start Date End Date Romulo Saucedo MD [address] [facility] [address] [place] [address] PCP - General Family Practice 04/22/23
--- OUTSIDE RECORDS SUMMARY | 2024-08-23 11:31 | XMS_ITS | Encounter Summary ---
Author Organization [facility] Address [address] [place] [address] Care Team Providers Care Automation Consultant Name Role Phone Romulo Saucedo MD Primary Care Provider [phone] Encounter Details Date Type Department Care Team (Late st Contact Info) Description 10/02/2019 Lab Requisition [facility] [address] 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 Gender Identity Female 05/06/2022 11:08 AM CDT Sexual Orientation Not on file documented as of this encounter Plan of Treatment Not on file documented as of this encounter Procedures Procedure Name Priority Date/Time Associated Diagnosis Comments DERMATOPATHOLOGY Routine 10/02/2019 12:0 0 AM CDT documented in this encounter Results * DERMATOPATHOLOGY (10/02/2019 12:00 AM CDT) Case Report Dermatopathology Report Case: [id number] Authorizing Provider: Mary Robbins MD Collected: 10/02/2019 12:00 AM Ordering Location: [facility] Derm[facility] Lab Received: 10/02/2019 10:42 AM Pathologist: [...] designated crown. The specimen consists of a [id number] excision of skin. The specimen is bisected and submitted in cassette 1. Jar 0. Specimen B: Received is one formalin filled container labeled with the patient's name and designated post crown. The specimen consists of a 5x5x12 bisected and [id number] excision (2 pieces) of skin. The specimen [...] characteristic determined by the Dermatopathology Laboratory at [facility], directed by Dr. Jesi Elizabeth. These tests need not be, and therefore are not, approved by the [place] Food and Drug Administration. The tests are used for clinical purposes. Billing Codes Specimen Charges Stain Charges 28958 96268 1 1 0 1:52 PM CDT DERMATOPATHOLOGY LABORATORY Embedded Images 0 1:52 PM CDT DERMATOPATHOLOGY LABORATORY Pathology/Cytology TISSUE SPECIMEN FROM SKIN / Unknown 10/02/2019 10/02/2019 10:42 AM CDT Miscellaneous samples (specimen) TISSUE SPECIMEN FROM SKIN / Unknown 10/02/2019 10/02/2019 10:42 AM CDT Mary Robbins MD LAB - PATHOLOGY/CYTOLOGY ORD ERABLES Final Result Performing Organization Address City/State/[facility] Co de Phone Number DERMATOPATHOLOGY LABORATORY [facility] - Department of Dermatology [facility] Administrator Center/[address] [phone] documented in this encounter Visit Diagnoses Not on filedocumented in this encounter Care Teams Automation Consultant Relationship Specialty Start Date End Date Romulo Saucedo MD [address] [place] [address] PCP - General Family Medicine 11/13/17 documented as of this encounter
--- OUTSIDE RECORDS SUMMARY | 2024-08-23 11:31 | XMS_ITS | Encounter Summary ---
Author Organization [facility] Address [address] [facility] [place] [address] Care Team Providers Care Bag Patcher Name Role Phone Romulo Saucedo MD Primary Care Provider [phone] Encounter Details Date Type Department Care Team (Late st Contact Info) Description 12/26/2019 Lab Requisition [facility] [address] [facility] [place] [id number] Mary Robbins MD [address] [facility] [address] [place] [address] Social History Tobacco Use Types Packs/Day Years Used Date Smoking Tobacco: Never Smokeless Tobacco: Never Alcohol Use Standard Drinks/Week Comments No 0 (1 standard drink = 0.6 oz pur e alcohol) Comments Unknown Sex and Gender Information Value Date Recorded Sex Assigned at Female 05/06/2022 11:08 AM CDT 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 Sex 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 CAR 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 Gender Identity Female 05/06/2022 11:08 AM CDT Sexual Orientation Not on file documented as of this encounter Plan of Treatment Not on file documented as of this encounter Procedures Procedure Name Priority Date/Time Associated Diagnosis Comments DERMATOPATHOLOGY Routine 12/25/2019 12:0 0 AM SERVICE CAR OPERATOR documented in this encounter Results * DERMATOPATHOLOGY (12/25/2019 12:00 AM SERVICE CAR OPERATOR) Case Report Dermatopathology Report Case: [id number] Authorizing Provider: Mary Robbins MD Collected: 12/25/2019 12:00 AM Ordering Location: [facility] DermPath Lab Received: 12/26/2019 07:25 AM Pathologist: Demarcus Elizabeth MD Specimens: A) - Skin, left scalp B) - Skin, left crown C) - Skin, right crown 0 4:10 PM [facility] DERMATOPATHOLOGY LABORATORY Final Diagnosis Specimen A. SKIN, left scalp: TRICHILEMMAL (PILAR) CYST WITH CALCIFICATION (L72.12) Specimen B. SKIN, left crown: TRICHILEMMAL (PILAR) CYST WITH CALCIFICATION (L72.12) Specimen C. SKIN, right crown: TRICHILEMMAL (PILAR) CYST (L72.12) 0 4:10 PM [facility] DERMATOPATHOLOGY LABORATORY at [address] SERVICE CAR OPERATOR Clinical History A-C: R/O cyst. 0 4:10 PM [facility] DERMATOPATHOLOGY LABORATORY Gross Description Specimen A: Received is one formalin filled container labeled with the patient's name and designated left scalp. The specimen consists of a [id number] excision, bisected. Jar 0. Specimen B: Received is one formalin filled container labeled with the patient's name and designated left crown. The specimen consists of an excision submitted in 2 pieces measuring 3h5r5fv, bisected, & 40h3r4fq. Jar 0+. Specimen C: Received is one formalin filled container labeled with the patient's name and designated right crown. The specimen consists of an excision submitted in 2 pieces measuring [id number], bisected, & [id number]. Jar 0. 0 4:10 PM [facility] DERMATOPATHOLOGY [facility]ORATORY Microscopic Description Specimen A. SKIN, [...] keratin within the cyst. 0 4:10 PM SERVICE CAR OPERATOR DERMATOPATHOLOGY LABORATORY Disclaimer An external and internal positive and negative controls are appropriate for the histochemical, immunohistochemical and immunofluorescence stain(s) in this case (if any), except where stated explicitly. The performance characteristics of the stain(s) cited in this report were developed and its performance characteristic determined by the Dermatopathology Laboratory at [facility], directed by Dr. Jesi Elizabeth. These tests need not be, and therefore are not, approved by the [place] Food and Drug Administration. The tests are used for clinical purposes. Billing Codes Specimen Charges Stain Charges 20708 35878 12607 1 1 1 0 4:10 PM SERVICE CAR OPERATOR DERMATOPATHOLOGY LABORATORY Embedded Images 0 4:10 PM SERVICE CAR OPERATOR DERMATOPATHOLOGY LABORATORY Pathology/Cytology TISSUE SPECIMEN FROM SKIN / Unknown 12/25/2019 12/26/2019 7:25 AM SERVICE CAR OPERATOR Miscellaneous samples (specimen) TISSUE SPECIMEN FROM SKIN / Unknown 12/25/2019 12/26/2019 7:25 AM SERVICE CAR OPERATOR Miscellaneous samples (specimen) TISSUE SPECIMEN FROM SKIN / Unknown 12/25/2019 12/26/2019 7:25 AM SERVICE CAR OPERATOR Mary Robbins MD LAB - PATHOLOGY/CYTOLOGY ORD ERABLES Final Result DERMATOPATHOLOGY LABORATORY [facility] - Department of Dermatology [facility] Specialized Medicine [address] [place] [address], [address] [phone] documented in this encounter Visit Diagnoses Not on filedocumented in this encounter Care Teams Bag Patcher Relationship Specialty Start Date End Date Romulo Saucedo MD [address] [place] [address] PCP - General Family Medicine 11/13/17 documented as of this encounter
--- OUTSIDE RECORDS SUMMARY | 2024-08-23 11:31 | XMS_ITS | Encounter Summary ---
Author Organization [facility] Address [address] [place] [address] Care Team Providers Care Shelf Drier Operator Name Role Phone Des Mott MD Primary Care Provider [phone] Romulo Saucedo MD Primary Care Provider [phone] Encounter Details Date Type Department Care Team (Late st Contact Info) Description 09/08/2017 Lab Requisition [facility] [address] [facility] [place] [id number] [phone] Asuncion Morin, [address] [facility] [address] [place] [address] Social History Tobacco Use Types Packs/Day Years Used Date Smoking Tobacco: Never Smokeless Tobacco: Never Alcohol Use Standard Drinks/Week Comments No 0 (1 standard drink = 0.6 oz pur e alcohol) Comments Unknown Sex and Gender Information Value Date Recorded Sex Assigned at Female 05/06/2022 11:08 AM CDT 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 Gender Identity Female 05/06/2022 11:08 AM CDT Sexual Orientation Not on file documented as of this encounter Plan of Treatment Not on file documented as of this encounter Procedures Procedure Name Priority Date/Time Associated Diagnosis Comments DERMATOPATH TECHNICAL REPORT Routine 09/06/2017 12:00 AM CDT documented in this encounter Results * DERMATOPATH TECHNICAL REPORT (09/06/2017 12:00 AM CDT) Case Report Dermatopathology Report Case: [id number] Authorizing Provider: Asuncion Morin DO Collected: 09/06/2017 12:00 AM Pathologist: Joyce Casey MD Received: 09/08/2017 07:18 AM Specimens: A) - Skin, right paraspinal back B) - Skin, right upper back 11:52 AM CDT DERMATOPATHOLOGY LABORATORY Addendum 1 At the request of the diagnosing physician, technical component for [place]-1/Melan A was performed on specimens A and B by [facility] Dermatopathology Laboratory. 11:52 AM CDT DERMATOPATHOLOGY LABORATORY [...] shave biopsy measuring 9x7x1 mm. Jar 0. [facility] Dermatopathology Laboratory performed the technical component only. [...] characteristic determined by the Dermatopathology Laboratory at [facility]. These tests need not be, and therefore [...] Edited Result - Final DERMATOPATHOLOGY LABORATORY [facility] - Department of Dermatology [address] [facility], 5th Floor Lab [address] [phone] documented in this encounter Visit Diagnoses Not on filedocumented in this encounter Care Teams Shelf Drier Operator Relationship Specialty Start Date End Date Des Mott MD [address] [place] [id number] PCP - General 07/28/10 11/12/17 Romulo Saucedo MD [address] [place] [address] PCP - General Family Medicine 11/13/17 documented as of this encounter
--- OUTSIDE RECORDS SUMMARY | 2024-08-23 11:31 | XMS_ITS | Clinical Summary ---
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 This disclosure is being madepursuant to the Care Everywhere program and may not contain all information available regarding this patient. Last updated 17.[facility] Allergies Active Allergy Reactions Criticality [...] with the patient. 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 She should continue calcium of 2551-3863 mg per day through dietary intake or [...] her baseline. 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 Gender Identity Female 05/06/2022 11:08 AM CDT [...] to complete this topic Insurance MEDICARE MEDICARE [facility] MEDICARE MEDICARE [facility] MEDICARE [facility] MEDICARE [facility] MEDICARE MEDICARE MEDICARE MEDICARE MEDICARE MEDICARE [facility] [facility] [place] [facility] [place] [facility] [facility] [place] [facility] [place] [place] [facility] [place] [facility] [place] [facility] [place] [facility] [place] [facility] [place] [facility] [place] [facility] [place] [facility] [place] [facility] [facility] [place] [facility] [facility] [place] [facility] [facility] [place] [facility] [place] [facility] [place] [facility] [place] [facility] [place] [facility] [employer] [facility] [place] [facility] [facility] [place] [facility] [facility] [place] [facility] [place] 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
[2024-08-23 12:30] VITALS: BP 122/68; PULSE 78; RESP 16; TEMP 36.6; O2SAT 98
== END 2024-08-23 12:58 | disposition home or self-care (01) ==
PROVIDERS: Emergency Provider Physician Assistant; PCP Family Medicine
DX: S56.912A Strain of unspecified muscles, fascia and tendons at forearm level, left arm, initial encounter (principal); S76.011A Strain of muscle, fascia and tendon of right hip, initial encounter; S20.222A Contusion of left back wall of thorax, initial encounter; I34.1 Nonrheumatic mitral (valve) prolapse; I10 Essential (primary) hypertension; I72.8 Aneurysm of other specified arteries; J45.909 Unspecified asthma, uncomplicated; E78.5 Hyperlipidemia, unspecified; E03.9 Hypothyroidism, unspecified; M81.0 Age-related osteoporosis without current pathological fracture; F41.1 Generalized anxiety disorder; F32.9 Major depressive disorder, single episode, unspecified; Z90.49 Acquired absence of other specified parts of digestive tract; K44.9 Diaphragmatic hernia without obstruction or gangrene; R93.2 Abnormal findings on diagnostic imaging of liver and biliary tract; W19.XXXA Unspecified fall, initial encounter; Z79.899 Other long term (current) drug therapy
CPT/HCPCS: 71250; 73080; 73502; 99284; A9270